=== PATIENT | male | born 1990 | race Caucasian/White ===

== ENCOUNTER 2017-03-05 02:16 | Emergency (ER) | payer OTHER ==
[2017-03-05] MEDS ORDERED: SODIUM CHLORIDE 0.9% 1,000 ML IV STA (02:31)
[2017-03-05] MEDS ORDERED: LORazepam 2 MG/ML SYRINGE IV STA (02:40)
[2017-03-05] MEDS ORDERED: ACETAMINOPHEN TAB 500 MG TAB PO STA (02:41)
[2017-03-05] MEDS ORDERED: ONDANSETRON 4 MG/2 ML VIAL IVP STA (02:41)
[2017-03-05] MEDS ORDERED: lamoTRIgine 100 MG TAB PO STA (02:42)
--- NOTE | 2017-03-05 02:47 | ED ---
General Adult HPI - General Chief complaint: Recheck/Abnormal Lab/Rx Stated complaint: Headache Time Seen by Provider: 03/05/17 02:20 Source: patient, RN notes reviewed Mode of arrival: EMS Limitations: no limitations - History of Present Illness Initial comments: Patient is a 26-year-old male presents to the emergency room for evaluation. Patient states he was walking home from work and felt a "vibrating" sensation starting from his upper legs up to his abdomen, bilateral arms and chest. Patient states he felt very "weird". Patient states he occasionally experiences this sensation before having a seizure. Patient states he has a history of seizures. Patient states he takes Lamictal 100 mg BID and Cymbalta. Patient states that he began developing a headache as well at the vibrations so he decided to call 911. Patient denies any loss of consciousness or actual seizure since experiencing the vibrating sensation. Patient states he is still feeling a vibrating sensation in his chest and bilateral arms. Patient states he started having a slight headache. Patient denies changes in vision. Patient denies dizziness or ringing in the ears. Patient's denies fevers or chills. Patient states he is nauseous but denies vomiting. Patient denies recent head trauma. Patient does state he has not taken his night time dose of Lamictal yet. Patient states he has history of an [place] when he was 19, due to low blood sugar. Patient states he hasn't checked his blood sugars today. Patient denies being on any medications. Patient states he smokes cigarettes and marijuana occasionally. Patient denies illicit drug use. Patient denies alcohol use. Patient denies cough, congestion, ear pain, throat pain, abdominal pain. - Related Data Home Medications Medication Instructions Recorded Confirmed Ranitidine HCl [Zantac] 150 mg PO BID PRN 10/20/14 11/04/16 lamoTRIgine [LaMICtal] 25 mg PO DAILY 11/04/16 11/04/16 Previous Rx's Medication Instructions Recorded DULoxetine HCL [Cymbalta] 60 mg PO DAILY #30 capsule. 10/02/16 Lacosamide [Vimpat] 100 mg PO BID #60 tablet 11/04/16 Allergies Allergy/AdvReac Type Severity Reaction Status Date / Time Penicillins Allergy Severe Anaphylaxis Verified 03/05/17 02:29 Review of Systems ROS Statement: Those systems with pertinent positive or pertinent negative responses have been documented in the HPI. ROS Other: All systems not noted in ROS Statement are negative. Past Medical History Past Medical History: GERD/Reflux, Myocardial Infarction ([place]), Seizure Disorder Additional Past Medical History / Comment(s): migraines, hypoglycemia, hiatal hernia, degenerative disk disease, torn miniscus left knee, muscle condition left eye. . Last Myocardial Infarction Date:: 2009 History of Any Multi-Drug Resistant Organisms: None Reported Past Surgical History: Appendectomy, Tonsillectomy Additional Past Surgical History / Comment(s): Jae Fundoplication, small intestional repair during appendectomy Past Anesthesia/Blood Transfusion Reactions: Family History of Problems w/ Anesthesia, Motion Sickness Additional Past Anesthesia/Blood Transfusion Reaction / Comment(s): MOTHER-PONV- diff waking up Past Psychological History: Anxiety, Bipolar, Depression Additional Psychological History / Comment(s): . Smoking Status: Current every day smoker Past Alcohol Use History: Rare Additional Past Alcohol Use History / Comment(s): He is a tobacco smoker of one third pack per day for 7 years. He states he uses marijuana and regular basis but not daily. 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 He denies any other street drug use. He denies any alcohol abuse. Past Drug Use History: None Reported Additional Drug Use History / Comment(s): . - Past Family History Brother(s) Additional Family Medical History / Comment(s): She has one brother and he has no contact with him. Patient does not have any sisters. Patient does not have any children. Father Family Medical History: Coronary Artery Disease (CAD), Myocardial Infarction ([place] ) Additional Family Medical History / Comment(s): Others 52 years of age and he has had no contact with him for the past 3 years. He states he does not know his medical history. Mother Family Medical History: No Reported History Additional Family Medical History / Comment(s): Mother is alive at age 51 has back and neck pain from work injury and is on disability.. General Exam - General Exam Comments Initial Comments: Sitting in exam room, no acute distress. Limitations: no limitations General appearance: alert, in no apparent distress Head exam: Present: atraumatic, normocephalic, normal inspection Eye exam: Present: normal appearance ENT exam: Present: normal exam Neck exam: Present: normal inspection Respiratory exam: Present: normal lung sounds bilaterally. Absent: respiratory distress Cardiovascular Exam: Present: regular rate, normal rhythm, normal heart sounds Extremities exam: Present: normal inspection Back exam: Present: normal inspection Neurological exam: Present: alert, oriented X3, CN II-XII intact, normal gait Expanded Speech: Present: fluid speech Cranial nerves: EOM's Intact: Normal, Facial Sensation: Normal Sensory exam: Upper Extremity Light Touch: Normal, Lower Extremity Light Touch: Normal Motor strength exam: RUE: 5, LUE: 5, RLE: 5, LLE: 5 Psychiatric exam: Present: normal affect, normal mood Skin exam: Present: warm, dry, intact, normal color. Absent: rash Course Vital Signs 03/05/17 03/05/17 03/05/17 02:24 03:18 04:04 Temperature 97.8 F Pulse Rate 101 H 80 81 Respiratory 16 18 16 Rate Blood Pressure 119/71 115/79 112/64 O2 Sat by Pulse 100 100 98 Oximetry EKG Findings - EKG Comments: EKG Findings:: Normal sinus rhythm with sinus arrhythmia, ventricular rate 79 bpm, RI interval 134 ms, QRS duration 92 ms, QT/QTc 364/417 ms Medical Decision Making - Medical Decision Making Patient is a 26-year-old male presents to the emergency room for evaluation of headache and vibrating sensation. Patient states he has a history of seizures and this feels similar prior to having a seizure. Patient had no seizure while he was here. Patient has no neuro deficits. Patient was given his night time dose of Lamictal and was given Ativan. Patient was given medications for headache. Labs showed no concerning findings. Advised patient to follow-up with his primary care provider or neurologist for further evaluation. Patient states he understands everything that was discussed with him. Return parameters discussed. Case discussed with Dr. Jones. - Lab Data Result diagrams: 03/05/17 02:45 03/05/17 02:45 Lab Results 03/05/17 03/05/17 03/05/17 Range/Units 02:45 02:45 02:45 WBC 7.2 (3.8-10.6) k/uL RBC 5.12 (4.30-5.90) m/uL Hgb 16.0 (13.0-17.5) gm/dL Hct 45.4 (39.0-53.0) % MCV 88.5 (80.0-100.0) fL MCH 31.3 (25.0-35.0) pg MCHC 35.4 (31.0-37.0) g/dL RDW 12.5 (11.5-15.5) % Plt Count 201 (150-450) k/uL Neutrophils % 64 % Lymphocytes % 26 % Monocytes % 6 % Eosinophils % 1 % Basophils % 1 % Neutrophils # 4.6 (1.3-7.7) k/uL Lymphocytes # 1.9 (1.0-4.8) k/uL Monocytes # 0.5 (0-1.0) k/uL Eosinophils # 0.1 (0-0.7) k/uL Basophils # 0.0 (0-0.2) k/uL Sodium 142 (137-145) mmol/L Potassium 3.3 L (3.5-5.1) mmol/L Chloride 106 (98-107) mmol/L Carbon Dioxide 26 (22-30) mmol/L Anion Gap 10 mmol/L BUN 10 (9-20) mg/dL Creatinine 0.70 (0.66-1.25) mg/dL Est GFR (MDRD) Af Amer >60 (>60 ml/min/1.73 sqM) Est GFR (MDRD) Non-Af >60 (>60 ml/min/1.73 sqM) Glucose 79 (74-99) mg/dL Calcium 10.0 (8.4-10.2) mg/dL Total Bilirubin 0.8 (0.2-1.3) mg/dL AST 30 (17-59) U/L ALT 31 (21-72) U/L Alkaline Phosphatase 49 (38-126) U/L Total Creatine Kinase 150 (55-170) U/L CK-MB (CK-2) 1.3 (0.0-2.4) ng/mL CK-MB (CK-2) Rel Index 0.9 Troponin I <0.012 (0.000-0.034) ng/mL Total Protein 7.0 (6.3-8.2) g/dL Albumin 4.7 (3.5-5.0) g/dL Salicylates <1.0 mg/dL Urine Opiates Screen (NotDetected) Ur Oxycodone Screen (NotDetected) Urine Methadone Screen (NotDetected) Ur Propoxyphene Screen (NotDetected) Acetaminophen <10.0 ug/mL Ur Barbiturates Screen (NotDetected) U Tricyclic Antidepress (NotDetected) Ur Phencyclidine Scrn (NotDetected) Ur Amphetamines Screen (NotDetected) U Methamphetamines Scrn (NotDetected) U Benzodiazepines Scrn (NotDetected) Urine Cocaine Screen (NotDetected) U Marijuana (THC) Screen (NotDetected) Serum Alcohol <10 mg/dL 03/05/17 Range/Units 03:15 WBC (3.8-10.6) k/uL RBC (4.30-5.90) m/uL Hgb (13.0-17.5) gm/dL Hct (39.0-53.0) % MCV (80.0-100.0) fL MCH (25.0-35.0) pg MCHC (31.0-37.0) g/dL RDW (11.5-15.5) % Plt Count (150-450) k/uL Neutrophils % % Lymphocytes % % Monocytes % % Eosinophils % % Basophils % % Neutrophils # (1.3-7.7) k/uL Lymphocytes # (1.0-4.8) k/uL Monocytes # (0-1.0) k/uL Eosinophils # (0-0.7) k/uL Basophils # (0-0.2) k/uL Sodium (137-145) mmol/L Potassium (3.5-5.1) mmol/L Chloride (98-107) mmol/L Carbon Dioxide (22-30) mmol/L Anion Gap mmol/L BUN (9-20) mg/dL Creatinine (0.66-1.25) mg/dL Est GFR (MDRD) Af Amer (>60 ml/min/1.73 sqM) Est GFR (MDRD) Non-Af (>60 ml/min/1.73 sqM) Glucose (74-99) mg/dL Calcium (8.4-10.2) mg/dL Total Bilirubin (0.2-1.3) mg/dL AST (17-59) U/L ALT (21-72) U/L Alkaline Phosphatase (38-126) U/L Total Creatine Kinase (55-170) U/L CK-MB (CK-2) (0.0-2.4) ng/mL CK-MB (CK-2) Rel Index Troponin I (0.000-0.034) ng/mL Total Protein (6.3-8.2) g/dL Albumin (3.5-5.0) g/dL Salicylates mg/dL Urine Opiates Screen Not Detected (NotDetected) Ur Oxycodone Screen Not Detected (NotDetected) Urine Methadone Screen Not Detected (NotDetected) Ur Propoxyphene Screen Not Detected (NotDetected) Acetaminophen ug/mL Ur Barbiturates Screen Not Detected (NotDetected) U Tricyclic Antidepress Not Detected (NotDetected) Ur Phencyclidine Scrn Not Detected (NotDetected) Ur Amphetamines Screen Not Detected (NotDetected) U Methamphetamines Scrn Not Detected (NotDetected) U Benzodiazepines Scrn Not Detected (NotDetected) Urine Cocaine Screen Not Detected (NotDetected) U Marijuana (THC) Screen Detected H (NotDetected) Serum Alcohol mg/dL Disposition Clinical Impression: Headache Disposition: HOME SELF-CARE Condition: Good Instructions: Acute Headache (ED) Additional Instructions: Continue taking at home medications as directed. Please follow-up with primary care provider or neurologist for reevaluation in 24-48 hours. If any new symptom arises or symptoms worsen, return to ER as soon as possible. Referrals: Gilbert Chery MD [Primary Care Provider] - 1-2 days Time of Disposition: 04:10
[2017-03-05 02:50] VITALS: TEMP 97.8
[2017-03-05 03:01] LABS: Basophils % (A) 1 %; CH 32.6; Eosinophils # (A) 0.1 k/uL (0-0.7); Eosinophils % (A) 1 %; HCT 45.4 % (39.0-53.0); HDW 2.71; Luc # (Auto) 0.17; Luc % (Auto) 2; Lymphocytes # (A) 1.9 k/uL (1.0-4.8); Lymphocytes % (A) 26 %; MCH 31.3 pg (25.0-35.0); MCHC 35.4 g/dL (31.0-37.0); MCV 88.5 fL (80.0-100.0); Mean Platelet Volume 6.6; Monocytes # (A) 0.5 k/uL (0-1.0); Monocytes % (A) 6 %; Neutrophils # (A) 4.6 k/uL (1.3-7.7); Neutrophils % (A) 64 %; RBC 5.12 m/uL (4.30-5.90); RDW 12.5 % (11.5-15.5); WBC 7.2 k/uL (3.8-10.6); WBC (Perox) 7.08
[2017-03-05 03:17] LABS: ALT 31 U/L (21-72); AST 30 U/L (17-59); Acetaminophen <10.0 ug/mL; Alcohol <10 mg/dL; Alkaline Phosphatase 49 U/L (38-126); Anion Gap 10 mmol/L; Blood Urea Nitrogen 10 mg/dL (9-20); Carbon Dioxide 26 mmol/L (22-30); Chloride 106 mmol/L (98-107); Glucose 79 mg/dL (74-99); Non-African American GFR(MDRD) >60 (>60 ml/min/1.73 sqM); Potassium 3.3 mmol/L (3.5-5.1); Salicylate <1.0 mg/dL; Sodium 142 mmol/L (137-145); Total Bilirubin 0.8 mg/dL (0.2-1.3)
[2017-03-05 03:40] LABS: Creatine Kinase 150 U/L (55-170)
[2017-03-05 03:53] LABS: Creatine Kinase MB 1.3 ng/mL (0.0-2.4); Troponin I <0.012 ng/mL (0.000-0.034)
[2017-03-05] MEDS ORDERED: IBUPROFEN 600 MG TAB PO STA (03:58)
[2017-03-05 04:06] VITALS: BP 112/64; PULSE 81; RESP 16
[2017-03-05 07:19] LABS: Glucose,Whole Blood 85 mg/dL (75-99)
== END 2017-03-05 04:26 | disposition home or self-care (01) ==
LOC: EC 02:16
DX: R51 Headache (principal); G40.909 Epilepsy, unspecified, not intractable, without status epilepticus; F17.200 Nicotine dependence, unspecified, uncomplicated; Z88.0 Allergy status to penicillin; Z79.899 Other long term (current) drug therapy
CPT/HCPCS: 99284; 96374; 96375; 96361; 36415; 93005; 80053; 80175; 82550; 82553; 84484; 85025; 80306; 83520 ×2; 80320; J2060; J2405

== ENCOUNTER 2017-07-02 20:36 | Emergency (ER) | payer BC, OTHER ==
[2017-07-02 20:48] VITALS: RESP 16
[2017-07-02] MEDS ORDERED: KETOROLAC 30 MG/ML 1 ML VIAL IM STA (21:10)
--- NOTE | 2017-07-02 21:16 | ED ---
Abdominal Pain HPI - General Chief Complaint: Abdominal Pain Stated Complaint: RLQ Pain Time Seen by Provider: 07/02/17 20:49 Source: patient Mode of arrival: ambulatory Limitations: no limitations - History of Present Illness Initial Comments: Patient is a 27-year-old male presents with chief complaint of right lower quadrant pain. Patient states he's been having this pain on and off for 6-8 months. He states today it was acutely worse. He was at work at about 9 AM when he states the pain intensified. He denies nausea, vomiting, appetite changes, diarrhea, or fever. Patient states that he has had his appendix removed. He cannot identify any aggravating or alleviating factors. Timing is constant. - Related Data Home Medications Medication Instructions Recorded Confirmed Ranitidine HCl [Zantac] 150 mg PO BID PRN 10/20/14 11/04/16 lamoTRIgine [LaMICtal] 25 mg PO DAILY 11/04/16 11/04/16 Previous Rx's Medication Instructions Recorded DULoxetine HCL [Cymbalta] 60 mg PO DAILY #30 capsule. 10/02/16 Lacosamide [Vimpat] 100 mg PO BID #60 tablet 11/04/16 Allergies Allergy/AdvReac Type Severity Reaction Status Date / Time Penicillins Allergy Severe Anaphylaxis Verified 07/02/17 20:44 Review of Systems ROS Statement: Those systems with pertinent positive or pertinent negative responses have been documented in the HPI. ROS Other: All systems not noted in ROS Statement are negative. Constitutional: Denies: fever Eyes: Denies: vision change ENT: Denies: ear pain, throat pain Respiratory: Denies: cough, dyspnea Cardiovascular: Denies: chest pain Endocrine: Denies: fatigue Gastrointestinal: Reports: abdominal pain. Denies: nausea, vomiting Genitourinary: Denies: dysuria Musculoskeletal: Denies: back pain Skin: Denies: rash Neurological: Denies: headache Psychiatric: Reports: as per HPI Hematological/Lymphatic: Reports: as per HPI Past Medical History Past Medical History: GERD/Reflux, Myocardial Infarction ([place]), Seizure Disorder Additional Past Medical History / Comment(s): migraines, hypoglycemia, hiatal hernia, degenerative disk disease, torn miniscus left knee, muscle condition left eye. . Last Myocardial Infarction Date:: 2009 History of Any Multi-Drug Resistant Organisms: None Reported Past Surgical History: Appendectomy, Tonsillectomy Additional Past Surgical History / Comment(s): Jae Fundoplication, small intestional repair during appendectomy Past Anesthesia/Blood Transfusion Reactions: Family History of Problems w/ Anesthesia, Motion Sickness Additional Past Anesthesia/Blood Transfusion Reaction / Comment(s): MOTHER-PONV- diff waking up Past Psychological History: Anxiety, Bipolar, Depression Smoking Status: Current every day smoker Past Alcohol Use History: Rare Past Drug Use History: None Reported - Past Family History Brother(s) Additional Family Medical History / Comment(s): She has one brother and he has no contact with him. Patient does not have any sisters. Patient does not have any children. Father Family Medical History: Coronary Artery Disease (CAD), Myocardial Infarction ([place] ) Additional Family Medical History / Comment(s): Others 52 years of age and he has had no contact with him for the past 3 years. He states he does not know his medical history. Mother Family Medical History: No Reported History Additional Family Medical History / Comment(s): Mother is alive at age 51 has back and neck pain from work injury and is on disability.. General Exam Limitations: no limitations General appearance: alert, in no apparent distress Head exam: Present: atraumatic, normocephalic Eye exam: Present: normal appearance ENT exam: Present: normal exam Neck exam: Present: normal inspection Respiratory exam: Present: normal lung sounds bilaterally. Absent: respiratory distress, wheezes Cardiovascular Exam: Present: regular rate, normal rhythm, normal heart sounds GI/Abdominal exam: Present: soft, tenderness (Patient has mild tenderness to palpation of the right rectus abdominis muscle border.). Absent: distended Rectal exam: Present: deferred exam: Present: normal inspection, circumcision. Absent: testicular tenderness, urethral discharge, scrotal swelling Extremities exam: Present: normal inspection Back exam: Present: normal inspection, full ROM Neurological exam: Present: alert, oriented X3 Psychiatric exam: Present: normal affect, normal mood Skin exam: Present: warm, dry, intact Course Vital Signs 07/02/17 20:44 Temperature 98.8 F Pulse Rate 89 Respiratory 16 Rate Blood Pressure 171/76 O2 Sat by Pulse 100 Oximetry Medical Decision Making - Medical Decision Making Patient presents with a chief complaint of right lower quadrant pain. This is been going on for 6-8 months. Patient has a history of an appendectomy, he further denies any fevers, chills, nausea, vomiting, stool changes, blood in his stool, testicular pain, or urethral discharge. Examination shows the patient has tenderness within the right inguinal canal along with the lower right rectus abdominis border. There is a slight defect felt in the right inguinal canal however there is no bowel or pulsatile mass present. 10:02 PM Abdominal series shows no acute process. There is nonspecific stool and gas pattern in all 4 quadrants of the abdomen. At this time, patient stable for discharge, follow up PCP, and surgery. He was given a work note to restrict lifting to 10 pounds until cleared by PCP or general surgery. Patient is instructed to return to the emergency department if symptoms worsen or change in any way. Disposition Clinical Impression: Hernia Disposition: HOME SELF-CARE Condition: Good Instructions: Inguinal Hernia (ED) Referrals: Gilbert Chery MD [Primary Care Provider] - 1-2 days Asuncion Metcalf MD [STAFF PHYSICIAN] - 1-2 days
--- NOTE | 2017-07-02 21:51 | XR ---
EXAMINATION TYPE: XR abdomen 2V DATE OF EXAM: 07/02/2017 9:18 PM CLINICAL HISTORY: right flank pain TECHNIQUE: Upright and supine KUB images of the abdomen pelvis. COMPARISON: None. FINDINGS: Scattered gas is seen in non-distended small bowel and large loops in all 4 quadrants. Gas and fecal material is seen in non-distended colon. No pneumatosis. No pneumoperitoneum. There is no v isceromegaly, pneumoperitoneum, or abnormal calcification appreciated. The lung bases are clear and t he osseous structures are intact. IMPRESSION: NO ACUTE PROCESS.
[2017-07-02 22:11] VITALS: BP 128/70; PULSE 68; TEMP 98.2
== END 2017-07-02 22:10 | disposition home or self-care (01) ==
LOC: EC 20:36
DX: K40.90 Unilateral inguinal hernia, without obstruction or gangrene, not specified as recurrent (principal); G40.909 Epilepsy, unspecified, not intractable, without status epilepticus; F17.200 Nicotine dependence, unspecified, uncomplicated; Z90.49 Acquired absence of other specified parts of digestive tract; Z79.899 Other long term (current) drug therapy; Z88.0 Allergy status to penicillin
CPT/HCPCS: 74020; 99284; 96372; J1885

== ENCOUNTER 2017-08-11 23:02 | Emergency (ER) | payer BC, OTHER ==
[2017-08-11 23:17] LABS: Glucose,Whole Blood 89 mg/dL (75-99)
[2017-08-11] MEDS ORDERED: ACETAMINOPHEN TAB 500 MG TAB PO STA (23:44)
[2017-08-11] MEDS ORDERED: SODIUM CHLORIDE 0.9% 1,000 ML IV STA (23:45)
[2017-08-11] MEDS ORDERED: HYDROmorphone 1 MG/ML 1 ML SYRINGE IVP STA (23:57)
[2017-08-12 00:01] LABS: Basophils # (A) 0.1 k/uL (0-0.2); Basophils % (A) 1 %; CH 30.9; CHCM 34.1; Eosinophils # (A) 0.2 k/uL (0-0.7); Eosinophils % (A) 3 %; HCT 45.1 % (39.0-53.0); HDW 2.71; HGB 15.4 gm/dL (13.0-17.5); Luc # (Auto) 0.18; Luc % (Auto) 3; Lymphocytes # (A) 2.7 k/uL (1.0-4.8); Lymphocytes % (A) 42 %; MCHC 34.2 g/dL (31.0-37.0); MCV 90.9 fL (80.0-100.0); Mean Platelet Volume 6.9; Monocytes # (A) 0.4 k/uL (0-1.0); Monocytes % (A) 6 %; Neutrophils # (A) 2.9 k/uL (1.3-7.7); Neutrophils % (A) 46 %; RBC 4.97 m/uL (4.30-5.90); RDW 12.4 % (11.5-15.5); WBC 6.4 k/uL (3.8-10.6); WBC (Perox) 6.47
[2017-08-12 00:12] LABS: Appearance,Urine Clear (Clear); Bilirubin,Urine Negative (Negative); Glucose,Urine (UA) Negative (Negative); Ketones,Urine Negative (Negative); Leukocyte Esterase,Urine Negative (Negative); Nitrite,Urine Negative (Negative); Protein,Urine Negative (Negative); Specific Gravity,Urine 1.002 (1.001-1.035); UA Billing (MACRO vs. MICRO) CHEM; Urobilinogen,Urine <2.0 mg/dL (<2.0)
[2017-08-12] MEDS ORDERED: ONDANSETRON 4 MG/2 ML VIAL IVP STA (00:15)
[2017-08-12 00:19] LABS: ALT 34 U/L (21-72); AST 31 U/L (17-59); Alkaline Phosphatase 66 U/L (38-126); Anion Gap 12 mmol/L; Blood Urea Nitrogen 8 mg/dL (9-20); Calcium 9.8 mg/dL (8.4-10.2); Carbon Dioxide 30 mmol/L (22-30); Chloride 98 mmol/L (98-107); Glucose 92 mg/dL (74-99); Non-African American GFR(MDRD) >60 (>60 ml/min/1.73 sqM); Potassium 3.8 mmol/L (3.5-5.1); Sodium 140 mmol/L (137-145); Total Bilirubin 0.4 mg/dL (0.2-1.3); Total Protein 6.9 g/dL (6.3-8.2)
--- NOTE | 2017-08-12 00:58 | XR ---
History: Reason: Pain Exam: XR C SPINE 5 images Comparison: CT cervical spine 09/26/2016 FINDINGS: No evidence of fracture or malalignment. The disc spaces appear preserved. No evidence of prevertebral swelling. IMPRESSION: No evidence of fracture or malalignment.
--- NOTE | 2017-08-12 01:38 | ED ---
Seizure HPI - General Chief Complaint: Seizure Stated Complaint: Seizure Time Seen by Provider: 08/11/17 23:28 Source: patient, family Mode of arrival: ambulatory Limitations: no limitations - History of Present Illness Initial Comments: 27-year-old male patient presents for evaluation after expressing a seizure at home. Mother states the seizure started at approximately 2230, states that she heard a fall and thrashing movements, went to see was going on in the patient was having a full body tonic-clonic seizure. She reports that his limbs were stiffened an outstretched. She denies any drooling or foaming at the mouth. States that he was not responding to her during the episode. She states that the episode lasted approximately 5 minutes. Patient denies any loss of bowel or bladder control. Mother states patient was confused and disoriented afterwards. She does have a history of epilepsy and does take Lamictal for this. Patient denies any recent illness, weight changes, or adjustment in his medication dosing. He states he has been taking the Lamictal as directed. States he sees Dr. Rubalcava as a neurologist. Patient states his last seizure was approximately month ago. States is not unusual to for him to have seizures occasionally. Patient did strike his head when the seizure started. He is currently reporting a headache after the seizure however he states that it is normal for him. He states that he has headaches after every seizure. He states that this headache feels very similar to those episodes. Patient is also reporting some neck pain, states it does hurt to turn his head side to side. Patient denies any recent rash, fever, chills, shortness breath, chest pain, abdominal pain, nausea, vomiting, diarrhea, constipation, back pain, numbness, tingling, dizziness, weakness, hematuria, dysuria, urinary urgency, urinary frequency, visual changes, or any other complaints. - Related Data Home Medications Medication Instructions Recorded Confirmed lamoTRIgine [LaMICtal] 100 mg PO BID 07/02/17 08/11/17 Hydrocodone/Acetaminophen [[place] 1 tab PO Q6HR PRN 08/11/17 08/11/17 7.5-325] Previous Rx's Medication Instructions Recorded DULoxetine HCL [Cymbalta] 60 mg PO DAILY #30 10/02/16 Ibuprofen [Motrin] 800 mg PO Q6HR #30 tab 07/02/17 Allergies Allergy/AdvReac Type Severity Reaction Status Date / Time Penicillins Allergy Severe Anaphylaxis Verified 08/11/17 23:05 Review of Systems ROS Statement: Those systems with pertinent positive or pertinent negative responses have been documented in the HPI. ROS Other: All systems not noted in ROS Statement are negative. Past Medical History Past Medical History: GERD/Reflux, Myocardial Infarction ([place]), Seizure Disorder Additional Past Medical History / Comment(s): migraines, hypoglycemia, hiatal hernia, degenerative disk disease, torn miniscus left knee, muscle condition left eye. . Last Myocardial Infarction Date:: 2009 History of Any Multi-Drug Resistant Organisms: None Reported Past Surgical History: Appendectomy, Tonsillectomy Additional Past Surgical History / Comment(s): Jae Fundoplication, small intestional repair during appendectomy Past Anesthesia/Blood Transfusion Reactions: Family History of Problems w/ Anesthesia, Motion Sickness Additional Past Anesthesia/Blood Transfusion Reaction / Comment(s): MOTHER-PONV- diff waking up Past Psychological History: Anxiety, Bipolar, Depression Smoking Status: Current every day smoker Past Alcohol Use History: Rare Past Drug Use History: None Reported - Past Family History Brother(s) Additional Family Medical History / Comment(s): She has one brother and he has no contact with him. Patient does not have any sisters. Patient does not have any children. Father Family Medical History: Coronary Artery Disease (CAD), Myocardial Infarction ([place] ) Additional Family Medical History / Comment(s): Others 52 years of age and he has had no contact with him for the past 3 years. He states he does not know his medical history. Mother Family Medical History: No Reported History Additional Family Medical History / Comment(s): Mother is alive at age 51 has back and neck pain from work injury and is on disability.. General Exam Limitations: no limitations General appearance: alert, in no apparent distress, other (This is a well- developed, well-nourished adult male patient in no acute distress. He is currently alert and oriented. Vital signs upon presentation were temperature 97.8F, pulse 75, respirations 18, blood pressure 134/86, pulse ox 100% on room air.) Head exam: Present: other (Patient does have some soft tissue swelling and minor ecchymosis to the left forehead.) Eye exam: Present: normal appearance, PERRL, EOMI. Absent: scleral icterus, conjunctival injection, nystagmus, periorbital swelling ENT exam: Present: normal exam, normal oropharynx, mucous membranes moist, TM's normal bilaterally Neck exam: Present: normal inspection, tenderness (Some tenderness over the upper cervical vertebrae to firm midline palpation.), full ROM. Absent: meningismus, lymphadenopathy Respiratory exam: Present: normal lung sounds bilaterally. Absent: respiratory distress, wheezes, rales, rhonchi, stridor Cardiovascular Exam: Present: regular rate, normal rhythm, normal heart sounds. Absent: systolic murmur, diastolic murmur, rubs, gallop, clicks GI/Abdominal exam: Present: soft, normal bowel sounds. Absent: distended, tenderness, guarding, rebound, rigid Extremities exam: Present: normal inspection, full ROM, normal capillary refill. Absent: tenderness, pedal edema, joint swelling, calf tenderness Back exam: Present: normal inspection Neurological exam: Present: alert, oriented X3, CN II-XII intact, other ( Strength in all 4 extremities is 5/5. Patient is alert and acutely response. Speech is fluid.) Psychiatric exam: Present: normal affect, normal mood Skin exam: Present: warm, dry, intact, normal color. Absent: rash Course Vital Signs 08/11/17 23:02 Temperature 97.8 F Pulse Rate 75 Respiratory 18 Rate Blood Pressure 134/86 O2 Sat by Pulse 100 Oximetry Medical Decision Making - Medical Decision Making 27 year-old male patient presented for evaluation after having a seizure and fall at home. Physical exam did show a mild amount of soft tissue swelling to the left forehead. Patient is neurologically intact. Labs are unremarkable. Urinalysis negative. Urine drug screen positive for opiates only. X-ray of the cervical spine negative for any acute fracture or dislocation. Patient has been stable while here in the department. No further seizure activity. Patient instructed to follow-up with his neurologist in 1-2 days for recheck. They're instructed to return immediately for any new, worsening, or concerning symptoms. They verbalize understanding and agree with this plan. - Lab Data Result diagrams: 08/11/17 23:15 08/11/17 23:15 Lab Results 08/11/17 08/11/17 08/11/17 Range/Units 23:15 23:15 23:15 WBC 6.4 (3.8-10.6) k/uL RBC 4.97 (4.30-5.90) m/uL Hgb 15.4 (13.0-17.5) gm/dL Hct 45.1 (39.0-53.0) % MCV 90.9 (80.0-100.0) fL MCH 31.0 (25.0-35.0) pg MCHC 34.2 (31.0-37.0) g/dL RDW 12.4 (11.5-15.5) % Plt Count 211 (150-450) k/uL Neutrophils % 46 % Lymphocytes % 42 % Monocytes % 6 % Eosinophils % 3 % Basophils % 1 % Neutrophils # 2.9 (1.3-7.7) k/uL Lymphocytes # 2.7 (1.0-4.8) k/uL Monocytes # 0.4 (0-1.0) k/uL Eosinophils # 0.2 (0-0.7) k/uL Basophils # 0.1 (0-0.2) k/uL Sodium 140 (137-145) mmol/L Potassium 3.8 (3.5-5.1) mmol/L Chloride 98 (98-107) mmol/L Carbon Dioxide 30 (22-30) mmol/L Anion Gap 12 mmol/L BUN 8 L (9-20) mg/dL Creatinine 0.70 (0.66-1.25) mg/dL Est GFR (MDRD) Af Amer >60 (>60 ml/min/1.73 sqM) Est GFR (MDRD) Non-Af >60 (>60 ml/min/1.73 sqM) Glucose 92 (74-99) mg/dL POC Glucose (mg/dL) 89 (75-99) mg/dL POC Glu Barrel Raiser Helper ID Jennifer Conklin Calcium 9.8 (8.4-10.2) mg/dL Total Bilirubin 0.4 (0.2-1.3) mg/dL AST 31 (17-59) U/L ALT 34 (21-72) U/L Alkaline Phosphatase 66 (38-126) U/L Total Protein 6.9 (6.3-8.2) g/dL Albumin 4.5 (3.5-5.0) g/dL Urine Color Urine Appearance (Clear) Urine pH (5.0-8.0) Ur Specific [place] (1.001-1.035) Urine Protein (Negative) Urine Glucose (UA) (Negative) Urine Ketones (Negative) Urine Blood (Negative) Urine Nitrite (Negative) Urine Bilirubin (Negative) Urine Urobilinogen (<2.0) mg/dL Ur Leukocyte Esterase (Negative) Urine Opiates Screen (NotDetected) Ur Oxycodone Screen (NotDetected) Urine Methadone Screen (NotDetected) Ur Propoxyphene Screen (NotDetected) Ur Barbiturates Screen (NotDetected) U Tricyclic Antidepress (NotDetected) Ur Phencyclidine Scrn (NotDetected) Ur Amphetamines Screen (NotDetected) U Methamphetamines Scrn (NotDetected) U Benzodiazepines Scrn (NotDetected) Urine Cocaine Screen (NotDetected) U Marijuana (THC) Screen (NotDetected) 08/11/17 Range/Units 23:57 WBC (3.8-10.6) k/uL RBC (4.30-5.90) m/uL Hgb (13.0-17.5) gm/dL Hct (39.0-53.0) % MCV (80.0-100.0) fL MCH (25.0-35.0) pg MCHC (31.0-37.0) g/dL RDW (11.5-15.5) % Plt Count (150-450) k/uL Neutrophils % % Lymphocytes % % Monocytes % % Eosinophils % % Basophils % % Neutrophils # (1.3-7.7) k/uL Lymphocytes # (1.0-4.8) k/uL Monocytes # (0-1.0) k/uL Eosinophils # (0-0.7) k/uL Basophils # (0-0.2) k/uL Sodium (137-145) mmol/L Potassium (3.5-5.1) mmol/L Chloride (98-107) mmol/L Carbon Dioxide (22-30) mmol/L Anion Gap mmol/L BUN (9-20) mg/dL Creatinine (0.66-1.25) mg/dL Est GFR (MDRD) Af Amer (>60 ml/min/1.73 sqM) Est GFR (MDRD) Non-Af (>60 ml/min/1.73 sqM) Glucose (74-99) mg/dL POC Glucose (mg/dL) (75-99) mg/dL POC Glu Barrel Raiser Helper ID Calcium (8.4-10.2) mg/dL Total Bilirubin (0.2-1.3) mg/dL AST (17-59) U/L ALT (21-72) U/L Alkaline Phosphatase (38-126) U/L Total Protein (6.3-8.2) g/dL Albumin (3.5-5.0) g/dL Urine Color Colorless Urine Appearance Clear (Clear) Urine pH 7.0 (5.0-8.0) Ur Specific [place] 1.002 (1.001-1.035) Urine Protein Negative (Negative) Urine Glucose (UA) Negative (Negative) Urine Ketones Negative (Negative) Urine Blood Negative (Negative) Urine Nitrite Negative (Negative) Urine Bilirubin Negative (Negative) Urine Urobilinogen <2.0 (<2.0) mg/dL Ur Leukocyte Esterase Negative (Negative) Urine Opiates Screen Detected H (NotDetected) Ur Oxycodone Screen Not Detected (NotDetected) Urine Methadone Screen Not Detected (NotDetected) Ur Propoxyphene Screen Not Detected (NotDetected) Ur Barbiturates Screen Not Detected (NotDetected) U Tricyclic Antidepress Not Detected (NotDetected) Ur Phencyclidine Scrn Not Detected (NotDetected) Ur Amphetamines Screen Not Detected (NotDetected) U Methamphetamines Scrn Not Detected (NotDetected) U Benzodiazepines Scrn Not Detected (NotDetected) Urine Cocaine Screen Not Detected (NotDetected) U Marijuana (THC) Screen Not Detected (NotDetected) - Radiology Data Radiology results: report reviewed, image reviewed X-ray of the cervical spine shows no evidence of fracture or malalignment. The disc spaces appear preserved. No evidence of prevertebral swelling. Impression by Dr. Field shows no evidence of fracture or malalignment. Disposition Clinical Impression: Seizure Disposition: HOME SELF-CARE Condition: Good Instructions: Recurrent Seizures in Adults (ED) Additional Instructions: Follow-up with her neurologist for recheck in 1-2 days. Monitor for signs or symptoms of worsening head injury including but not limited to dizziness, weakness, worsening headache, nausea, vomiting, or confusion. Follow-up with your primary care physician for recheck in 1-2 days. Return here immediately for any new, worsening, or concerning symptoms. Referrals: Gilbert Chery MD [Primary Care Provider] - 1-2 days Time of Disposition: 01:38
[2017-08-12 01:56] VITALS: BP 138/80; PULSE 70; RESP 16; TEMP 97.9
== END 2017-08-12 01:57 | disposition home or self-care (01) ==
LOC: EC 23:02
DX: G40.909 Epilepsy, unspecified, not intractable, without status epilepticus (principal); F31.9 Bipolar disorder, unspecified; F17.200 Nicotine dependence, unspecified, uncomplicated; Z88.0 Allergy status to penicillin; Z79.899 Other long term (current) drug therapy
CPT/HCPCS: 99284 ×2; 96374 ×2; 96375 ×2; 96361 ×2; 36415; 93005; 80053; 85025; 81003; 80306; 72050; J2405; J1170

== ENCOUNTER 2017-11-11 22:36 | Emergency (ER) | payer BC ==
[2017-11-11 22:49] VITALS: RESP 18
[2017-11-11] MEDS ORDERED: HYDROmorphone 1 MG/ML 1 ML SYRINGE IVP STA (23:45)
[2017-11-11] MEDS ORDERED: SODIUM CHLORIDE 0.9% 1,000 ML IV STA (23:45)
--- NOTE | 2017-11-12 00:11 | ED ---
General Adult HPI - General Chief complaint: Head Injury Stated complaint: seizure Time Seen by Provider: 11/11/17 23:18 Source: patient, RN notes reviewed Mode of arrival: ambulatory Limitations: no limitations - History of Present Illness Initial comments: This is a 27-year-old male who presents to the emergency department with chief complaint of seizure. Patient states that he has a history of epilepsy since being diagnosed in April 2016. He sees Dr. Glass. Patient states that since the last time he was seen in the emergency department for a seizure his Lamictal was increased 150 mg. Patient states that this evening at approximately 1010 he was in his bedroom. He got up to bring his plate to the sink and awoke 5-10 minutes later. Patient states that the seizure was not witnessed and believes he hit his forehead on the wall as he has some abrasions there. He states that after having his seizure he felt more delirious than normal. He states that normally after having seizures he does get a headache, however this time his headache is worse than normal. He states that the headache is constant and pounding in his forehead. He currently rates the headache as 8/10. Patient states that he took Tylenol for the headache with minimal relief prior to arrival. Mother is concerned because patient seems to be twitching while he is here and she notes that his speech is slower than normal. Denies fever, chills, chest pain, shortness of breath, abdominal pain, nausea or vomiting, constipation or diarrhea, dysuria or hematuria, numbness or tingling, or vision changes. - Related Data Home Medications Medication Instructions Recorded Confirmed Acetaminophen Tab [Tylenol Tab] 1,000 mg PO Q6HR PRN 11/11/17 11/11/17 DULoxetine HCL [Cymbalta] 60 mg PO BID 11/11/17 11/11/17 lamoTRIgine [LaMICtal] 150 mg PO BID 11/11/17 11/11/17 Allergies Allergy/AdvReac Type Severity Reaction Status Date / Time Penicillins Allergy Severe Anaphylaxis Verified 11/11/17 23:17 Review of Systems ROS Statement: Those systems with pertinent positive or pertinent negative responses have been documented in the HPI. ROS Other: All systems not noted in ROS Statement are negative. Past Medical History Past Medical History: GERD/Reflux, Myocardial Infarction ([place]), Seizure Disorder Additional Past Medical History / Comment(s): migraines, hypoglycemia, hiatal hernia, degenerative disk disease, torn miniscus left knee, muscle condition left eye. . Last Myocardial Infarction Date:: 2009 History of Any Multi-Drug Resistant Organisms: None Reported Past Surgical History: Appendectomy, Tonsillectomy Additional Past Surgical History / Comment(s): Jae Fundoplication, small intestional repair during appendectomy Past Anesthesia/Blood Transfusion Reactions: Family History of Problems w/ Anesthesia, Motion Sickness Additional Past Anesthesia/Blood Transfusion Reaction / Comment(s): MOTHER-PONV- diff waking up Past Psychological History: Anxiety, Bipolar, Depression Smoking Status: Current every day smoker Past Alcohol Use History: Rare Past Drug Use History: None Reported - Past Family History Brother(s) Additional Family Medical History / Comment(s): She has one brother and he has no contact with him. Patient does not have any sisters. Patient does not have any children. Father Family Medical History: Coronary Artery Disease (CAD), Myocardial Infarction ([place] ) Additional Family Medical History / Comment(s): Others 52 years of age and he has had no contact with him for the past 3 years. He states he does not know his medical history. Mother Family Medical History: No Reported History Additional Family Medical History / Comment(s): Mother is alive at age 51 has back and neck pain from work injury and is on disability.. General Exam - General Exam Comments Initial Comments: General: Awake and alert, well-developed; in no apparent distress. Mother is at bedside. HEENT: Head atraumatic, normocephalic. Pupils are equal, round and reactive to light. Extraocular movements intact. Oropharynx moist without erythema or exudate. Neck: Supple. Normal ROM. Cardiovascular: Regular rate and rhythm. No murmurs, rubs or gallops. Chest symmetrical. Respiratory: Lungs clear to auscultation bilaterally. No wheezes, rales or rhonchi. Normal respiratory effort with no use of accessory muscles. Abdomen: Soft, non-tender, non-distended. No rigidity, rebound or guarding. Normal bowel sounds in all 4 quadrants. Musculoskeletal: Normal ROM, no tenderness, strength 5/5 bilateral upper and lower extremities. Skin: [place], warm and dry without rashes or lesions. Neurological: Alert and oriented x3. CN II-XII grossly intact. Speech is fluent and answers are appropriate. No focal neuro deficits. Psychiatric: Normal mood and affect. No overt signs of depression or anxiety noted. Limitations: no limitations Course Vital Signs 11/11/17 11/12/17 22:43 00:22 Temperature 99.0 F Pulse Rate 108 H 96 Respiratory 18 18 Rate Blood Pressure 143/85 121/62 O2 Sat by Pulse 99 98 Oximetry EKG Findings - EKG Comments: EKG Findings:: EKG at 23:50:01. Normal sinus rhythm. Ventricular rate 89 bpm, PA interval 134, QRS duration 90, QT/QTC 342/416. Medical Decision Making - Medical Decision Making This is a 27-year-old male presents to the emergency department with chief complaint of seizure. Patient has a history of epilepsy and takes 150 mg of Lamictal daily. This evening patient had a non-witnessed seizure at home in his bedroom. Patient complains of a frontal headache that is worse than his normal headaches. Computed tomography scan of the brain revealed no acute abnormalities. CBC and CMP were within normal limits. UA was normal and negative for all drugs screened. Patient was stable while in the emergency department; no seizures. Patient will be discharged home with recommendation to follow-up with Dr. Rubalcava within 1-2 days. He is in agreement with plan and voices understanding. All questions were answered. - Lab Data Result diagrams: 11/12/17 00:15 11/12/17 00:15 Lab Results 11/12/17 11/12/17 11/12/17 Range/Units 00:15 00:15 00:15 WBC 7.3 (3.8-10.6) k/uL RBC 4.91 (4.30-5.90) m/uL Hgb 15.0 (13.0-17.5) gm/dL Hct 42.9 (39.0-53.0) % MCV 87.3 (80.0-100.0) fL MCH 30.6 (25.0-35.0) pg MCHC 35.0 (31.0-37.0) g/dL RDW 13.4 (11.5-15.5) % Plt Count 217 (150-450) k/uL Neutrophils % 58 % Lymphocytes % 31 % Monocytes % 6 % Eosinophils % 2 % Basophils % 1 % Neutrophils # 4.2 (1.3-7.7) k/uL Lymphocytes # 2.2 (1.0-4.8) k/uL Monocytes # 0.5 (0-1.0) k/uL Eosinophils # 0.1 (0-0.7) k/uL Basophils # 0.1 (0-0.2) k/uL Sodium 142 (137-145) mmol/L Potassium 3.9 (3.5-5.1) mmol/L Chloride 106 (98-107) mmol/L Carbon Dioxide 26 (22-30) mmol/L Anion Gap 10 mmol/L BUN 15 (9-20) mg/dL Creatinine 0.80 (0.66-1.25) mg/dL Est GFR (MDRD) Af Amer >60 (>60 ml/min/1.73 sqM) Est GFR (MDRD) Non-Af >60 (>60 ml/min/1.73 sqM) Glucose 89 (74-99) mg/dL Calcium 9.7 (8.4-10.2) mg/dL Total Bilirubin 0.3 (0.2-1.3) mg/dL AST 21 (17-59) U/L ALT 34 (21-72) U/L Alkaline Phosphatase 50 (38-126) U/L Total Protein 6.8 (6.3-8.2) g/dL Albumin 4.4 (3.5-5.0) g/dL Urine Color Yellow Urine Appearance Clear (Clear) Urine pH 6.0 (5.0-8.0) Ur Specific [place] 1.042 H (1.001-1.035) Urine Protein 1+ H (Negative) Urine Glucose (UA) Negative (Negative) Urine Ketones Trace H (Negative) Urine Blood Negative (Negative) Urine Nitrite Negative (Negative) Urine Bilirubin Negative (Negative) Urine Urobilinogen 2.0 (<2.0) mg/dL Ur Leukocyte Esterase Negative (Negative) Urine RBC <1 (0-5) /hpf Urine WBC 2 (0-5) /hpf Ur Squamous Epith Cells <1 (0-4) /hpf Calcium Oxalate Crystal Rare H (None) /hpf Urine Mucus Many H (None) /hpf Urine Opiates Screen Not Detected (NotDetected) Ur Oxycodone Screen Not Detected (NotDetected) Urine Methadone Screen Not Detected (NotDetected) Ur Propoxyphene Screen Not Detected (NotDetected) Ur Barbiturates Screen Not Detected (NotDetected) U Tricyclic Antidepress Not Detected (NotDetected) Ur Phencyclidine Scrn Not Detected (NotDetected) Ur Amphetamines Screen Not Detected (NotDetected) U Methamphetamines Scrn Not Detected (NotDetected) U Benzodiazepines Scrn Not Detected (NotDetected) Urine Cocaine Screen Not Detected (NotDetected) U Marijuana (THC) Screen Not Detected (NotDetected) - Radiology Data Radiology results: report reviewed CT brain without contrast findings: Ventral sulci appear normal. There is no mass effect or midline shift. There is no sign of intracranial hemorrhage. Calvarium is intact. Conclusion: Negative computed tomography scan of the brain. No change. Disposition Clinical Impression: Seizure, Headache Disposition: HOME SELF-CARE Condition: Good Instructions: Recurrent Seizures in Adults (ED) Additional Instructions: Please follow-up with Dr. Rubalcava within 1-2 days. Please follow up with primary care provider within 1-2 days. Return to emergency department if symptoms should worsen or any concerns arise. Bhargav was seen in the emergency department following a seizure this evening. While in the emergency department he received Dilaudid and IV fluids. CT of the brain was normal with no evidence of intracranial hemorrhage. CBC and CMP were within normal limits. UA and drug screen were negative. Patient was stable while in the emergency department. Referrals: Huber Zhu MD [Primary Care Provider] - 1-2 days Time of Disposition: 01:35
--- NOTE | 2017-11-12 00:35 | CT ---
EXAMINATION TYPE: CT brain wo con DATE OF EXAM: 11/12/2017 COMPARISON: 09/26/2016 HISTORY: Prior on synapse 2016, seizure today CT DLP: 973.80 mGycm. Automated Exposure Control for Dose Reduction was Utilized. TECHNIQUE: CT scan of the head is performed without contrast. FINDINGS: Ventricles and sulci appear normal. There is no mass effect nor midline shift. There is n o sign of intracranial hemorrhage. The calvarium is intact. CONCLUSION: Negative CT scan of the brain. No change.
[2017-11-12 00:37] LABS: Basophils # (A) 0.1 k/uL (0-0.2); Basophils % (A) 1 %; Eosinophils # (A) 0.1 k/uL (0-0.7); Eosinophils % (A) 2 %; HCT 42.9 % (39.0-53.0); Lymphocytes # (A) 2.2 k/uL (1.0-4.8); Lymphocytes % (A) 31 %; MCH 30.6 pg (25.0-35.0); MCV 87.3 fL (80.0-100.0); Mean Platelet Volume 7.2; Monocytes # (A) 0.5 k/uL (0-1.0); Monocytes % (A) 6 %; Neutrophils # (A) 4.2 k/uL (1.3-7.7); Neutrophils % (A) 58 %; Platelet Count 217 k/uL (150-450); RBC 4.91 m/uL (4.30-5.90); RDW 13.4 % (11.5-15.5); WBC 7.3 k/uL (3.8-10.6)
[2017-11-12 00:55] LABS: ALT 34 U/L (21-72); AST 21 U/L (17-59); Albumin 4.4 g/dL (3.5-5.0); Alkaline Phosphatase 50 U/L (38-126); Anion Gap 10 mmol/L; Blood Urea Nitrogen 15 mg/dL (9-20); Calcium 9.7 mg/dL (8.4-10.2); Carbon Dioxide 26 mmol/L (22-30); Chloride 106 mmol/L (98-107); Glucose 89 mg/dL (74-99); Potassium 3.9 mmol/L (3.5-5.1); Sodium 142 mmol/L (137-145); Total Bilirubin 0.3 mg/dL (0.2-1.3); Total Protein 6.8 g/dL (6.3-8.2)
[2017-11-12 00:56] LABS: Appearance,Urine Clear (Clear); Bilirubin,Urine Negative (Negative); Blood,Urine Negative (Negative); Calcium Oxalate Crystals,Urine Rare /hpf; Color,Urine Yellow; Glucose,Urine (UA) Negative (Negative); Ketones,Urine Trace (Negative); Leukocyte Esterase,Urine Negative (Negative); Mucus,Urine Many /hpf; Nitrite,Urine Negative (Negative); Protein,Urine 1+ (Negative); RBC,Urine <1 /hpf (0-5); Specific Gravity,Urine 1.042 (1.001-1.035); Squamous Epithelial Cell,Urine <1 /hpf (0-4); WBC,Urine 2 /hpf (0-5)
[2017-11-12 01:07] LABS: Amphetamine Screen,Urine Not Detected (NotDetected); Barbiturate Screen,Urine Not Detected (NotDetected); Benzodiazepines Screen,Urine Not Detected (NotDetected); Cocaine Screen,Urine Not Detected (NotDetected); Methadone Screen, Urine Not Detected (NotDetected); Opiate Screen,Urine Not Detected (NotDetected); Oxycodone Screen, Urine Not Detected (NotDetected); Phencyclidine Screen,Urine Not Detected (NotDetected); Tricyclic Antidepressant,Urine Not Detected (NotDetected); Urn Cannabinoid Scrn Not Detected (NotDetected)
[2017-11-12] MEDS ORDERED: HYDROmorphone 1 MG/ML 1 ML SYRINGE IM STA (01:31)
[2017-11-12 01:49] VITALS: BP 116/64; PULSE 89; TEMP 97.8
== END 2017-11-12 01:48 | disposition home or self-care (01) ==
LOC: EC 22:36
DX: G40.909 Epilepsy, unspecified, not intractable, without status epilepticus (principal); R51 Headache; F31.9 Bipolar disorder, unspecified; F41.9 Anxiety disorder, unspecified; F17.200 Nicotine dependence, unspecified, uncomplicated; Z88.0 Allergy status to penicillin; Z79.899 Other long term (current) drug therapy; W22.01XA Walked into wall, initial encounter
CPT/HCPCS: 36415; 93005; 80053; 85025; 81001; 80306; 70450; 99284; 96374; 96372; 96361; J1170

== ENCOUNTER 2018-11-20 20:36 | Emergency (ER) | payer BC, OTHER ==
[2018-11-20 21:23] LABS: Basophils # (A) 0.1 k/uL (0-0.2); Basophils % (A) 1 %; Eosinophils # (A) 0.2 k/uL (0-0.7); Eosinophils % (A) 2 %; HCT 50.1 % (39.0-53.0); HGB 17.1 gm/dL (13.0-17.5); Lymphocytes # (A) 2.4 k/uL (1.0-4.8); Lymphocytes % (A) 35 %; MCH 28.7 pg (25.0-35.0); MCHC 34.2 g/dL (31.0-37.0); Mean Platelet Volume 6.7; Monocytes # (A) 0.4 k/uL (0-1.0); Monocytes % (A) 5 %; Neutrophils # (A) 3.8 k/uL (1.3-7.7); Neutrophils % (A) 55 %; Platelet Count 280 k/uL (150-450); RBC 5.96 m/uL (4.30-5.90); RDW 13.8 % (11.5-15.5)
[2018-11-20 21:33] LABS: ALT 29 U/L (21-72); AST 22 U/L (17-59); Albumin 5.1 g/dL (3.5-5.0); Alkaline Phosphatase 52 U/L (38-126); Amylase 116 U/L (30-110); Anion Gap 10 mmol/L; Blood Urea Nitrogen 13 mg/dL (9-20); Calcium 10.2 mg/dL (8.4-10.2); Carbon Dioxide 30 mmol/L (22-30); Chloride 101 mmol/L (98-107); Glucose 82 mg/dL (74-99); Lipase 372 U/L (23-300); Potassium 4.1 mmol/L (3.5-5.1); Sodium 141 mmol/L (137-145); Total Bilirubin 0.6 mg/dL (0.2-1.3); Total Protein 8.1 g/dL (6.3-8.2)
[2018-11-20 21:44] LABS: Appearance,Urine Clear (Clear); Bilirubin,Urine Negative (Negative); Blood,Urine Negative (Negative); Color,Urine Yellow; Glucose,Urine (UA) Negative (Negative); Ketones,Urine Negative (Negative); Leukocyte Esterase,Urine Negative (Negative); Nitrite,Urine Negative (Negative); Protein,Urine Trace (Negative); Specific Gravity,Urine 1.025 (1.001-1.035); Urobilinogen,Urine <2.0 mg/dL (<2.0)
--- NOTE | 2018-11-20 23:06 | ED ---
General Adult HPI - General Chief complaint: Abdominal Pain Stated complaint: Nausea vomiting Source: patient Mode of arrival: ambulatory Limitations: no limitations - Related Data Home Medications Medication Instructions Recorded Confirmed DULoxetine HCL [Cymbalta] 60 mg PO BID 11/11/17 11/20/18 Ibuprofen [Motrin Ib] 200 mg PO Q6H PRN 11/20/18 11/20/18 Previous Rx's Medication Instructions Recorded Ondansetron Odt [Zofran Odt] 4 mg PO Q8HR PRN #12 tab 11/21/18 Allergies Allergy/AdvReac Type Severity Reaction Status Date / Time Penicillins Allergy Severe Anaphylaxis Verified 11/20/18 22:16 Review of Systems ROS Statement: Those systems with pertinent positive or pertinent negative responses have been documented in the HPI. ROS Other: All systems not noted in ROS Statement are negative. Past Medical History Past Medical History: GERD/Reflux, Myocardial Infarction ([place]), Seizure Disorder Additional Past Medical History / Comment(s): migraines, hypoglycemia, hiatal hernia, degenerative disk disease, torn miniscus left knee, muscle condition left eye. . Last Myocardial Infarction Date:: 2009 History of Any Multi-Drug Resistant Organisms: None Reported Past Surgical History: Appendectomy, Tonsillectomy Additional Past Surgical History / Comment(s): Jae Fundoplication, small intestional repair during appendectomy Past Anesthesia/Blood Transfusion Reactions: Family History of Problems w/ Anesthesia, Motion Sickness Additional Past Anesthesia/Blood Transfusion Reaction / Comment(s): MOTHER-PONV- diff waking up Past Psychological History: Anxiety, Bipolar, Depression Smoking Status: Current every day smoker Past Alcohol Use History: Rare Past Drug Use History: Marijuana - Past Family History Brother(s) Additional Family Medical History / Comment(s): She has one brother and he has no contact with him. Patient does not have any sisters. Patient does not have any children. Father Family Medical History: Coronary Artery Disease (CAD), Myocardial Infarction ([place] ) Additional Family Medical History / Comment(s): Others 52 years of age and he has had no contact with him for the past 3 years. He states he does not know his medical history. Mother Family Medical History: No Reported History Additional Family Medical History / Comment(s): Mother is alive at age 51 has back and neck pain from work injury and is on disability.. General Exam Limitations: no limitations Course Vital Signs 11/20/18 11/21/18 21:04 00:58 Temperature 100.2 F H 98.2 F Pulse Rate 107 H 79 Respiratory 20 18 Rate Blood Pressure 133/90 126/84 O2 Sat by Pulse 99 99 Oximetry Medical Decision Making - Medical Decision Making Dictation was produced using [employer] dictation software. please excuse any grammatical, word or spelling errors. Chief Complaint: 28-year-old male past medical history of Jae fundoplication for hiatal hernia presents with abdominal pain and unintentional weight loss times History of Present Illness: 28-year-old male Presents with chief complaint of epigastric abdominal pain with unintentional weight loss for one month. Patient states his symptoms have started [place] time. Reports that since [place] he's been having reduced appetite, nausea vomiting. He states that his emesis is green. Denies any diarrhea. States that he has pain in his epigastrium that radiates to his back when he lies flat. Patient has also been having night sweats and other constitutional symptoms. Patient is brought in by his mother today because he looked pale and is losing weight at to fast rate. He states he lost approximately 20 pounds in one month. The ROS documented in this emergency department record has been reviewed and confirmed by me. Those systems with pertinent positive or negative responses have been documented in the HPI. All other systems are other negative and/or noncontributory. PHYSICAL EXAM: General Impression: Alert and oriented x3, not in acute distress HEENT: Normocephalic atraumatic, extra-ocular movements intact, pupils equal and reactive to light bilaterally, mucous membranes moist. Cardiovascular: Heart regular rate and rhythm, S1&S2 audible, no murmurs, rubs or gallops Chest: Lungs clear to auscultation bilaterally, no rhonchi, no wheeze, no rales Abdomen: Bowel sounds present, abdomen soft, non-tender, non-distended, no organomegaly Musculoskeletal: Pulses present and equal in all extremities, no peripheral edema Motor: Power 5/5 bilaterally, no focal deficits noted Neurological: CN II-XII grossly intact, no focal motor or sensory deficits noted Skin: Intact with no visualized rashes Psych: Normal affect and mood ED course: Old male past medical history of hiatal hernia surgery in 2013 presents with 1 month of abdominal pain. Vital signs upon arrival shows temperature 100.2, heart rate of 107, rest of vital signs within acceptable limits. Lavatory evaluation obtained. CBC, metabolic panel is unremarkable. Patient has mild lipase elevation of 372. Urinalysis unremarkable. CT abdomen and pelvis with contrast shows no acute processes. Ultrasound of the abdomen is unremarkable. More history was obtained from patient. He has been taking Motrin frequent for his back. There is strong clinical suspicion of gastritis. He should that he should follow-up with his general surgeon who also does upper endoscopies. Patient told to abstain from any NSAIDs at the moment. Told to take Zantac [id number]. Patient given prescription for Zofran - Lab Data Result diagrams: 11/20/18 21:12 11/20/18 21:12 Lab Results 11/20/18 11/20/18 11/20/18 Range/Units 21:12 21:12 21:12 WBC 7.0 (3.8-10.6) k/uL RBC 5.96 H (4.30-5.90) m/uL Hgb 17.1 (13.0-17.5) gm/dL Hct 50.1 (39.0-53.0) % MCV 84.0 (80.0-100.0) fL MCH 28.7 (25.0-35.0) pg MCHC 34.2 (31.0-37.0) g/dL RDW 13.8 (11.5-15.5) % Plt Count 280 (150-450) k/uL Neutrophils % 55 % Lymphocytes % 35 % Monocytes % 5 % Eosinophils % 2 % Basophils % 1 % Neutrophils # 3.8 (1.3-7.7) k/uL Lymphocytes # 2.4 (1.0-4.8) k/uL Monocytes # 0.4 (0-1.0) k/uL Eosinophils # 0.2 (0-0.7) k/uL Basophils # 0.1 (0-0.2) k/uL Sodium 141 (137-145) mmol/L Potassium 4.1 (3.5-5.1) mmol/L Chloride 101 (98-107) mmol/L Carbon Dioxide 30 (22-30) mmol/L Anion Gap 10 mmol/L BUN 13 (9-20) mg/dL Creatinine 0.92 (0.66-1.25) mg/dL Est GFR (CKD-EPI)AfAm >90 (>60 ml/min/1.73 sqM) Est GFR (CKD-EPI)NonAf >90 (>60 ml/min/1.73 sqM) Glucose 82 (74-99) mg/dL Calcium 10.2 (8.4-10.2) mg/dL Total Bilirubin 0.6 (0.2-1.3) mg/dL AST 22 (17-59) U/L ALT 29 (21-72) U/L Alkaline Phosphatase 52 (38-126) U/L Total Protein 8.1 (6.3-8.2) g/dL Albumin 5.1 H (3.5-5.0) g/dL Amylase 116 H (30-110) U/L Lipase 372 H (23-300) U/L Urine Color Yellow Urine Appearance Clear (Clear) Urine pH 6.0 (5.0-8.0) Ur Specific [place] 1.025 (1.001-1.035) Urine Protein Trace H (Negative) Urine Glucose (UA) Negative (Negative) Urine Ketones Negative (Negative) Urine Blood Negative (Negative) Urine Nitrite Negative (Negative) Urine Bilirubin Negative (Negative) Urine Urobilinogen <2.0 (<2.0) mg/dL Ur Leukocyte Esterase Negative (Negative) Disposition Clinical Impression: Abdominal pain Disposition: HOME SELF-CARE Condition: Good Instructions: Abdominal Pain (ED) Prescriptions: Ondansetron Odt [Zofran Odt] 4 mg PO Q8HR PRN #12 tab PRN Reason: Nausea Is patient prescribed a controlled substance at d/c from ED?: No Referrals: Huber Zhu MD [Primary Care Provider] - 1-2 days Jesús Mejia MD [STAFF PHYSICIAN] - 1-2 days Time of Disposition: 01:20
[2018-11-20] MEDS ORDERED: ONDANSETRON 4 MG/2 ML VIAL IVP STA (23:07)
[2018-11-20] MEDS ORDERED: MORPHINE SULFATE 2 MG/ML SYRINGE IVP PRN (23:07)
--- NOTE | 2018-11-21 00:16 | CT ---
EXAMINATION TYPE: CT abdomen pelvis w con DATE OF EXAM: 11/21/2018 COMPARISON: 09/26/2016 HISTORY: abdominal pain. CT DLP: 522.3 mGycm Automated exposure control for dose reduction was used. TECHNIQUE: Helical acquisition of images was performed from the lung bases through the pelvis. CONTRAST: Performed without Oral Contrast and with IV Contrast, patient injected with 100mL mL of Isovue 300. FINDINGS: Lung bases are clear. There is no pleural effusion. Heart size is normal. There is no pericardial eff usion. There are surgical clips at the gastric fundus. Liver shows no focal defect. The gallbladder a ppears normal. Bile ducts are not dilated. Spleen appears normal. There is no pancreatic mass. There is no adrenal mass. Kidneys show satisfactory contrast opacification. There is no hydronephrosi s. Bladder distends smoothly. There is no free fluid in the pelvis. There is no inguinal hernia. Ther e is no evidence of a bowel obstruction. I see no intestinal wall thickening. There is no mesenteric edema. Appendix is not definitely seen. There is no sign of a thickened append ix. The lumbar vertebra have normal spacing and alignment. There is no compression fracture. Bony pel vis is intact. There is a surgical clip at the anterior rectum. IMPRESSION: NEGATIVE CT SCAN OF THE ABDOMEN AND PELVIS. I DO NOT SEE A CAUSE FOR ABDOMINAL PAIN. PREVIOUS UPPER A BDOMINAL SURGERY. NO SIGNIFICANT CHANGE COMPARED TO OLD EXAM.
[2018-11-21 00:59] VITALS: BP 126/84; PULSE 79; RESP 18; TEMP 98.2
--- NOTE | 2018-11-21 01:00 | US ---
EXAMINATION TYPE: US abdomen complete DATE OF EXAM: 11/21/2018 COMPARISON: NONE CLINICAL HISTORY: Pain. Pain and nausea. EXAM MEASUREMENTS: Liver Length: 14.0 cm Gallbladder Wall: 0.3 cm CBD: 0.3 cm Spleen: 9.0 cm Right Kidney: 10.6 x 3.5 x 4.0 cm Left Kidney: 10.1 x 4.0 x 3.8 cm Pancreas: Obscured by bowel gas Liver: wnl Gallbladder: wnl Evidence for sonographic Villafana's sign: No CBD: wnl Spleen: wnl Right Kidney: wnl Left Kidney: wnl Upper IVC: wnl Abd Aorta: wnl IMPRESSION: Normal complete abdominal sonogram. No gallstones or dilated ducts. No renal mass or obst ruction.
== END 2018-11-21 01:29 | disposition home or self-care (01) ==
LOC: EC 20:36
DX: R10.13 Epigastric pain (principal); R11.2 Nausea with vomiting, unspecified; R74.8 Abnormal levels of other serum enzymes; I25.2 Old myocardial infarction; F31.9 Bipolar disorder, unspecified; F41.9 Anxiety disorder, unspecified; F17.200 Nicotine dependence, unspecified, uncomplicated; Z79.899 Other long term (current) drug therapy; Z88.0 Allergy status to penicillin; Z90.49 Acquired absence of other specified parts of digestive tract
CPT/HCPCS: 36415; 80053; 82150; 83690; 85025; 81003; 76700; 74177; 99284; 96374; 96375; J2405; J2270; Q9967

== ENCOUNTER 2019-12-22 12:08 | Emergency (ER) | payer OTHER ==
[2019-12-22 12:14] VITALS: BP 106/66; PULSE 83; RESP 19; TEMP 98
[2019-12-22] MEDS ORDERED: HYDROcodone/APAP 7.5-325MG 1 EACH TAB PO ONE (12:16)
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
--- NOTE | 2019-12-22 13:10 | XR ---
EXAMINATION TYPE: XR foot complete RT, XR ankle complete RT DATE OF EXAM: 12/22/2019 CLINICAL HISTORY: Right foot and ankle pain after trauma TECHNIQUE: Frontal, lateral and oblique images of the right ankle and foot are obtained. COMPARISON: None. FINDINGS: There is no acute fracture/dislocation evident in the right ankle. The ankle mortise appe ars within normal limits. The overlying soft tissue appears unremarkable. There is no acute fracture or dislocation evident in the right foot. The joint spaces in the right foot are preserved. [place] ing soft tissue is unremarkable. IMPRESSION: There is no acute fracture or dislocation in the right ankle or foot.
== END 2019-12-22 14:02 | disposition home or self-care (01) ==
LOC: EC 12:08
DX: S93.601A Unspecified sprain of right foot, initial encounter (principal); M25.571 Pain in right ankle and joints of right foot; F41.9 Anxiety disorder, unspecified; F31.9 Bipolar disorder, unspecified; I25.2 Old myocardial infarction; F17.200 Nicotine dependence, unspecified, uncomplicated; Z79.899 Other long term (current) drug therapy; Z88.0 Allergy status to penicillin; V09.9XXA Pedestrian injured in unspecified transport accident, initial encounter; Y92.488 Other paved roadways as the place of occurrence of the external cause
CPT/HCPCS: 29515; 99283

== ENCOUNTER 2020-01-10 13:19 | Emergency (ER) | payer OTHER ==
[2020-01-10 13:23] VITALS: RESP 16
[2020-01-10] MEDS ORDERED: CLINDAMYCIN 600 MG in DEXTROSE 5% IN WATER 50 ML IVPB STA ×2 (14:05)
[2020-01-10] MEDS: SODIUM CHLORIDE 0.9% 500 ML 500 ML IV SCH ×2 (14:20→15:01)
--- NOTE | 2020-01-10 14:25 | ED ---
General Adult HPI - General Chief complaint: Extremity Problem,Nontraumatic Stated complaint: right hand swelling; pain Time Seen by Provider: 01/10/20 13:32 Source: patient, RN notes reviewed Mode of arrival: ambulatory Limitations: no limitations - History of Present Illness Initial comments: 29-year-old male with a past medical history of GERD, [place], migraines, degenerative disc disease, bipolar disorder presents to the emergency department for a chief complaint of right hand swelling and pain. Patient states that yesterday he had a bump to the dorsal aspect of his right hand. States that today the dorsum of his right hand is swollen and red. Patient is able to fully flex and extend all digits of the right hand.. Denies fevers or chills. P atient denies any IV drug abuse. Denies any immunocompromising factors. Denies chronic alcohol use. Patient denies noticing any scrapes or cuts on the right hand.Patient has no other complaints at this time including shortness of breath, chest pain, abdominal pain, nausea or vomiting, headache, or visual changes. - Related Data Home Medications Medication Instructions Recorded Confirmed DULoxetine HCL [Cymbalta] 60 mg PO BID 11/11/17 11/20/18 Ibuprofen [Motrin Ib] 200 mg PO Q6H PRN 11/20/18 11/20/18 Previous Rx's Medication Instructions Recorded Ondansetron Odt [Zofran Odt] 4 mg PO Q8HR PRN #12 tab 11/21/18 Clindamycin [Cleocin] 450 mg PO Q8H 10 Days #90 cap 01/10/20 Allergies Allergy/AdvReac Type Severity Reaction Status Date / Time Penicillins Allergy Severe Anaphylaxis Verified 01/10/20 13:23 Review of Systems ROS Statement: Those systems with pertinent positive or pertinent negative responses have been documented in the HPI. ROS Other: All systems not noted in ROS Statement are negative. Past Medical History Past Medical History: GERD/Reflux, Myocardial Infarction ([place]), Seizure Disorder Additional Past Medical History / Comment(s): migraines, hypoglycemia, hiatal hernia, degenerative disk disease, torn miniscus left knee, muscle condition left eye. . Last Myocardial Infarction Date:: 2009 History of Any Multi-Drug Resistant Organisms: None Reported Past Surgical History: Appendectomy, Tonsillectomy Additional Past Surgical History / Comment(s): Jae Fundoplication, small intestional repair during appendectomy Past Anesthesia/Blood Transfusion Reactions: Family History of Problems w/ Anesthesia, Motion Sickness Additional Past Anesthesia/Blood Transfusion Reaction / Comment(s): [id number] waking up Past Psychological History: Anxiety, Bipolar, Depression Smoking Status: Current every day smoker Past Alcohol Use History: Rare Past Drug Use History: Marijuana - Past Family History Brother(s) Additional Family Medical History / Comment(s): She has one brother and he has no contact with him. Patient does not have any sisters. Patient does not have any children. Father Family Medical History: Coronary Artery Disease (CAD), Myocardial Infarction ([place]) Additional Family Medical History / Comment(s): Others 52 years of age and he has had no contact with him for the past 3 years. He states he does not know his medical history. Mother Family Medical History: No Reported History Additional Family Medical History / Comment(s): Mother is alive at age 51 has back and neck pain from work injury and is on disability.. General Exam Limitations: no limitations General appearance: alert, in no apparent distress Head exam: Present: atraumatic, normocephalic, normal inspection Eye exam: Present: normal appearance, PERRL, EOMI. Absent: scleral icterus, conjunctival injection, periorbital swelling ENT exam: Present: normal exam, mucous membranes moist Neck exam: Present: normal inspection, full ROM. Absent: tenderness, meni ngismus, lymphadenopathy Respiratory exam: Present: normal lung sounds bilaterally. Absent: respiratory distress, wheezes, rales, rhonchi, stridor Cardiovascular Exam: Present: regular rate, normal rhythm, normal heart sounds. Absent: systolic murmur, diastolic murmur, rubs, gallop, clicks Extremities exam: Present: full ROM (Range of motion of the right hand. Patient able to make a full fist and extend all fingers to full extension.), tenderness (Tenderness noted to the dorsal aspect of the right hand worse over the second and third metacarpals), normal capillary refill (Capillary refill less than 2 seconds in the right upper extremity, radial pulse 2+.), other (There is no significant edema noted of the right hand however patient does have erythema to the dorsum of the right hand involving the first second third and fourth metacarpals.). Absent: pedal edema, joint swelling, calf tenderness Neurological exam: Present: alert Psychiatric exam: Present: normal affect, normal mood Course Vital Signs 01/10/20 13:21 Temperature 97.7 F Pulse Rate 97 Respiratory 16 Rate Blood Pressure 121/78 O2 Sat by Pulse 99 Oximetry Medical Decision Making - Medical Decision Making Those are stable. Patient is afebrile. Patient does have erythema noted to the dorsum of the right hand involving the first through fourth metacarpal areas. He does not have any tenderness along the tendon specifically. He is able to fully flex and extend all digits of the right hand. Can make a full fist as well. There is no evidence for tenosynovitis. Patient denies any IV drug use or any other immediate cauterizing factors. CBC CMP unremarkable. White blood cell count 10. CRP is elevated at 46.8. X-ray of the right hand was obtained which shows an unremarkable study. I discussed this case with Dr. [place]. PT was given a dose of IV antibiotics and will continue outpatient antibiotics. He is anaphylactic to penicillin so will be given clindamycin. Cellulitis was marked on skin. I discussed strict return parameters. Discussed returning if cellulitis is continuing to spread after 24 hours or if it spreads significantly in the next 24 hours. Discussed symptoms should start to improve after about 48 hours. Discussed that if he starts having any fevers or severe pain with moving the fingers he needs to return immediately to the emergency department. He is in agreement with this. - Lab Data Result diagrams: 01/10/20 14:21 01/10/20 14:21 Lab Results 01/10/20 01/10/20 01/10/20 Range/Units 14:21 14:21 14:21 WBC 10.3 (3.8-10.6) k/uL RBC 4.55 (4.30-5.90) m/uL Hgb 13.7 (13.0-17.5) gm/dL Hct 41.1 (39.0-53.0) % MCV 90.3 (80.0-100.0) fL MCH 30.1 (25.0-35.0) pg MCHC 33.3 (31.0-37.0) g/dL RDW 13.3 (11.5-15.5) % Plt Count 243 (150-450) k/uL Neutrophils % 73 % Lymphocytes % 17 % Monocytes % 5 % Eosinophils % 3 % Basophils % 1 % Neutrophils # 7.5 (1.3-7.7) k/uL Lymphocytes # 1.8 (1.0-4.8) k/uL Monocytes # 0.5 (0-1.0) k/uL Eosinophils # 0.3 (0-0.7) k/uL Basophils # 0.1 (0-0.2) k/uL Sodium 138 (137-145) mmol/L Potassium 4.1 (3.5-5.1) mmol/L Chloride 101 (98-107) mmol/L Carbon Dioxide 30 (22-30) mmol/L Anion Gap 7 mmol/L BUN 14 (9-20) mg/dL Creatinine 0.78 (0.66-1.25) mg/dL Est GFR (CKD-EPI)AfAm >90 (>60 ml/min/1.73 sqM) Est GFR (CKD-EPI)NonAf >90 (>60 ml/min/1.73 sqM) Glucose 91 (74-99) mg/dL Plasma Lactic Acid Hipolito 0.7 (0.7-2.0) mmol/L Calcium 9.3 (8.4-10.2) mg/dL Total Bilirubin 0.3 (0.2-1.3) mg/dL AST 50 (17-59) U/L ALT 23 (4-49) U/L Alkaline Phosphatase 68 (38-126) U/L C-Reactive Protein 46.8 H (<10.0) mg/L Total Protein 6.6 (6.3-8.2) g/dL Albumin 4.3 (3.5-5.0) g/dL Disposition Clinical Impression: Cellulitis of right hand, Hand pain Disposition: HOME SELF-CARE Condition: Good Instructions (If sedation given, give patient instructions): Cellulitis (ED) Additional Instructions: Please take Motrin and Tylenol for pain. Take antibiotic as directed. Monitor for worsening symptoms. If after 24 hours redness is spreading return to the emergency department. It may spread a small amount in the next 24 hours until antibiotics kick in. If you start to have any fevers or significant pain with moving her fingers return immediately to the emergency department as well. Otherwise follow-up with primary care in 1-2 days. Prescriptions: Clindamycin [Cleocin] 450 mg PO Q8H 10 Days #90 cap Is patient prescribed a controlled substance at d/c from ED?: No Referrals: Huber Zhu MD [REFERRING] - 1-2 days Time of Disposition: 15:14
[2020-01-10 14:38] LABS: Basophils # (A) 0.1 k/uL (0-0.2); Basophils % (A) 1 %; Eosinophils # (A) 0.3 k/uL (0-0.7); Eosinophils % (A) 3 %; HCT 41.1 % (39.0-53.0); HGB 13.7 gm/dL (13.0-17.5); Lymphocytes # (A) 1.8 k/uL (1.0-4.8); Lymphocytes % (A) 17 %; MCH 30.1 pg (25.0-35.0); MCHC 33.3 g/dL (31.0-37.0); MCV 90.3 fL (80.0-100.0); Mean Platelet Volume 7.3; Monocytes # (A) 0.5 k/uL (0-1.0); Monocytes % (A) 5 %; Neutrophils # (A) 7.5 k/uL (1.3-7.7); Neutrophils % (A) 73 %; Platelet Count 243 k/uL (150-450); RBC 4.55 m/uL (4.30-5.90); RDW 13.3 % (11.5-15.5); WBC 10.3 k/uL (3.8-10.6)
--- NOTE | 2020-01-10 14:48 | XR ---
EXAMINATION TYPE: XR hand complete RT DATE OF EXAM: 01/10/2020 CLINICAL HISTORY: Swelling. Cellulitis. Evaluate for calcific TECHNIQUE: Frontal, lateral and oblique images of the right hand are obtained. COMPARISON: None. FINDINGS: There is no acute fracture/dislocation evident in the right hand. The joint spaces in the i hand appear within normal limits. The overlying soft tissue appears unremarkable without suspiciou s radiodense foreign body identified. IMPRESSION: Unremarkable study.
[2020-01-10 14:55] LABS: ALT 23 U/L (4-49); AST 50 U/L (17-59); African American GFR (CKD) >90 (>60 ml/min/1.73 sqM); Albumin 4.3 g/dL (3.5-5.0); Alkaline Phosphatase 68 U/L (38-126); Anion Gap 7 mmol/L; Blood Urea Nitrogen 14 mg/dL (9-20); C Reactive Protein 46.8 mg/L (<10.0); Calcium 9.3 mg/dL (8.4-10.2); Carbon Dioxide 30 mmol/L (22-30); Chloride 101 mmol/L (98-107); Glucose 91 mg/dL (74-99); Non-African American GFR(CKD) >90 (>60 ml/min/1.73 sqM); Potassium 4.1 mmol/L (3.5-5.1); Sodium 138 mmol/L (137-145); Total Bilirubin 0.3 mg/dL (0.2-1.3); Total Protein 6.6 g/dL (6.3-8.2)
[2020-01-10] MEDS ORDERED: KETOROLAC 30 MG/ML 1 ML VIAL IVP STA (14:57)
[2020-01-10 16:11] VITALS: BP 138/74; PULSE 79; TEMP 98
== END 2020-01-10 16:10 | disposition home or self-care (01) ==
LOC: EC 13:19
DX: L03.113 Cellulitis of right upper limb (principal); R79.82 Elevated C-reactive protein (CRP); M51.9 Unspecified thoracic, thoracolumbar and lumbosacral intervertebral disc disorder; F32.9 Major depressive disorder, single episode, unspecified; F41.9 Anxiety disorder, unspecified; F17.200 Nicotine dependence, unspecified, uncomplicated; Z88.0 Allergy status to penicillin; Z79.1 Long term (current) use of non-steroidal anti-inflammatories (NSAID); Z79.899 Other long term (current) drug therapy
CPT/HCPCS: 36415; 80053; 83605; 85025; 86140; 87040; 73130; 99283; 96365; 96375; 96361; J1885

== ENCOUNTER 2020-01-11 20:06 | Emergency (ER) | payer OTHER ==
[2020-01-11] MEDS ORDERED: CLINDAMYCIN 600 MG in DEXTROSE 5% IN WATER 50 ML IVPB ONE ×2 (22:00)
[2020-01-11 22:14] LABS: Basophils # (A) 0.1 k/uL (0-0.2); Basophils % (A) 1 %; Eosinophils # (A) 0.3 k/uL (0-0.7); Eosinophils % (A) 4 %; HCT 37.2 % (39.0-53.0); HGB 12.5 gm/dL (13.0-17.5); Lymphocytes # (A) 1.6 k/uL (1.0-4.8); Lymphocytes % (A) 25 %; MCHC 33.7 g/dL (31.0-37.0); MCV 92.1 fL (80.0-100.0); Mean Platelet Volume 7.8; Monocytes # (A) 0.3 k/uL (0-1.0); Monocytes % (A) 5 %; Neutrophils % (A) 63 %; Platelet Count 213 k/uL (150-450); RBC 4.04 m/uL (4.30-5.90); RDW 13.4 % (11.5-15.5); WBC 6.4 k/uL (3.8-10.6)
[2020-01-11] MEDS ORDERED: MORPHINE SULFATE 4 MG/ML SYRINGE IVP STA (22:19)
[2020-01-11 22:23] LABS: ALT 18 U/L (4-49); AST 32 U/L (17-59); African American GFR (CKD) >90 (>60 ml/min/1.73 sqM); Albumin 3.8 g/dL (3.5-5.0); Alkaline Phosphatase 51 U/L (38-126); Anion Gap 7 mmol/L; Blood Urea Nitrogen 17 mg/dL (9-20); Calcium 8.5 mg/dL (8.4-10.2); Carbon Dioxide 26 mmol/L (22-30); Chloride 105 mmol/L (98-107); Glucose 102 mg/dL (74-99); Non-African American GFR(CKD) >90 (>60 ml/min/1.73 sqM); Potassium 4.3 mmol/L (3.5-5.1); Sodium 138 mmol/L (137-145); Total Bilirubin 0.1 mg/dL (0.2-1.3); Total Protein 5.9 g/dL (6.3-8.2)
--- NOTE | 2020-01-11 22:45 | ED ---
Skin/Abscess/FB HPI - General Chief complaint: Skin/Abscess/Foreign Body Stated complaint: hand/arm swelling-revisit Time Seen by Provider: 01/11/20 21:14 Source: patient Mode of arrival: ambulatory Limitations: no limitations - History of Present Illness Initial comments: Bhargav is a pleasant 29-year-old gentleman who presents the ER today for reevaluation of swelling and pain of the right hand. Patient was seen and evaluated yesterday, he had mild leukocytosis and negative x-ray he is prescribed clindamycin which he reports he has taken 6 doses of. Patient reports that despite being compliant with anti-biotics and taking Tylenol and Motrin for the pain he's noticed worsening swelling though no redness in his right hand which prompted him come back for reevaluation. Patient states he's been trying to keep the hand elevated though she's also been using his thumb he has some pain with motion. He has not noticed any redness of the hand but does note that it's warm and swollen. Patient denies any associated fevers chills nausea vomiting or illness. He is nondiabetic. Patient denies any trauma to the hand. - Related Data Home Medications Medication Instructions Recorded Confirmed DULoxetine HCL [Cymbalta] 60 mg PO BID 11/11/17 01/11/20 Ibuprofen [Motrin Ib] 200 mg PO Q6H PRN 11/20/18 01/11/20 Diazepam [Valium] 5 mg PO BID PRN 01/11/20 01/11/20 Mirtazapine [Remeron] 15 mg PO HS PRN 01/11/20 01/11/20 Previous Rx's Medication Instructions Recorded Clindamycin [Cleocin] 450 mg PO Q8H 10 Days #90 cap 01/10/20 Allergies Allergy/AdvReac Type Severity Reaction Status Date / Time Penicillins Allergy Severe Anaphylaxis Verified 01/11/20 22:42 Review of Systems ROS Statement: Those systems with pertinent positive or pertinent negative responses have been documented in the HPI. ROS Other: All systems not noted in ROS Statement are negative. Past Medical History Past Medical History: GERD/Reflux, Myocardial Infarction ([place]), Seizure Disorder Additional Past Medical History / Comment(s): migraines, hypoglycemia, hiatal hernia, degenerative disk disease, torn miniscus left knee, muscle condition left eye. . Last Myocardial Infarction Date:: 2010 History of Any Multi-Drug Resistant Organisms: None Reported Past Surgical History: Appendectomy, Tonsillectomy Additional Past Surgical History / Comment(s): Jae Fundoplication, small intestional repair during appendectomy Past Anesthesia/Blood Transfusion Reactions: Family History of Problems w/ Anesthesia, Motion Sickness Additional Past Anesthesia/Blood Transfusion Reaction / Comment(s): [id number] waking up Past Psychological History: Anxiety, Bipolar, Depression Smoking Status: Current every day smoker Past Alcohol Use History: Rare Past Drug Use History: Marijuana - Past Family History Brother(s) Additional Family Medical History / Comment(s): She has one brother and he has no contact with him. Patient does not have any sisters. Patient does not have any children. Father Family Medical History: Coronary Artery Disease (CAD), Myocardial Infarction ([place]) Additional Family Medical History / Comment(s): Others 52 years of age and he has had no contact with him for the past 3 years. He states he does not know his medical history. Mother Family Medical History: No Reported History Additional Family Medical History / Comment(s): Mother is alive at age 51 has back and neck pain from work injury and is on disability.. General Exam - General Exam Comments Initial Comments: Physical Exam GENERAL: Patient is well-developed and well-nourished. Patient is nontoxic and well-hydrated and is in no distress. HENT: Normocephalic, Atraumatic. EYES: PERRL, EOMI PULMONARY: Unlabored respirations. CARDIOVASCULAR: RRR Warm and well perfused extremities ABDOMEN: Non-distended SKIN: The right hand is swollen and warm to the touch, there is no erythema or induration, there are no obvious open wounds, no obvious abscess : Deferred NEUROLOGIC: Alert and oriented Normal speech Normal gait MUSCULOSKELETAL: Moving all extremities with no apparent injury PSYCHIATRIC: No SI/HI Limitations: no limitations Course Vital Signs 01/11/20 01/11/20 20:19 23:19 Temperature 98.6 F 98.3 F Pulse Rate 96 77 Respiratory 20 18 Rate Blood Pressure 135/87 122/82 O2 Sat by Pulse 98 98 Oximetry Medical Decision Making - Medical Decision Making The patient was seen and evaluated, history is obtained from the patient and review of medical record sign 29-year-old nondiabetic male with swelling and tenderness of the right hand and right forearm, x-ray yesterday showed no foreign bodies or obvious injuries Stated hand is more swollen it is warm to touch but there is no cellulitis no signs of abscess no signs of skin injury Repeat labs are obtained patient was given an IV dose of Unasyn Labs revealed resolution of leukocytosis, no other significant abnormalities are noted. At this time I feel the patient stable for discharge home continued oral antibiotics and follow with primary care. Supportive care including ice and elevation of the hand were discussed with patient. All questions pertaining care were answered return parameters were discussed patient was discharged home in stable condition. - Lab Data Result diagrams: 01/11/20 22:00 01/11/20 22:00 Lab Results 01/11/20 01/11/20 Range/Units 22:00 22:00 WBC 6.4 (3.8-10.6) k/uL RBC 4.04 L (4.30-5.90) m/uL Hgb 12.5 L (13.0-17.5) gm/dL Hct 37.2 L (39.0-53.0) % MCV 92.1 (80.0-100.0) fL MCH 31.0 (25.0-35.0) pg MCHC 33.7 (31.0-37.0) g/dL RDW 13.4 (11.5-15.5) % Plt Count 213 (150-450) k/uL Neutrophils % 63 % Lymphocytes % 25 % Monocytes % 5 % Eosinophils % 4 % Basophils % 1 % Neutrophils # 4.0 (1.3-7.7) k/uL Lymphocytes # 1.6 (1.0-4.8) k/uL Monocytes # 0.3 (0-1.0) k/uL Eosinophils # 0.3 (0-0.7) k/uL Basophils # 0.1 (0-0.2) k/uL Sodium 138 (137-145) mmol/L Potassium 4.3 (3.5-5.1) mmol/L Chloride 105 (98-107) mmol/L Carbon Dioxide 26 (22-30) mmol/L Anion Gap 7 mmol/L BUN 17 (9-20) mg/dL Creatinine 0.65 L (0.66-1.25) mg/dL Est GFR (CKD-EPI)AfAm >90 (>60 ml/min/1.73 sqM) Est GFR (CKD-EPI)NonAf >90 (>60 ml/min/1.73 sqM) Glucose 102 H (74-99) mg/dL Calcium 8.5 (8.4-10.2) mg/dL Total Bilirubin 0.1 L (0.2-1.3) mg/dL AST 32 (17-59) U/L ALT 18 (4-49) U/L Alkaline Phosphatase 51 (38-126) U/L Total Protein 5.9 L (6.3-8.2) g/dL Albumin 3.8 (3.5-5.0) g/dL Disposition Clinical Impression: Swelling of right hand Disposition: HOME SELF-CARE Condition: Stable Additional Instructions: Continue to take your antibiotics as prescribed, contact her primary care office tomorrow for follow-up by the end of the week for reevaluation, keep the hand elevated and apply ice for swelling, return to the ER Worsening pain redness or any new or concerning symptoms. Is patient prescribed a controlled substance at d/c from ED?: No Referrals: None,Stated [Primary Care Provider] - 1-2 days
[2020-01-11 23:20] VITALS: BP 122/82; PULSE 77; RESP 18; TEMP 98.3
== END 2020-01-11 23:20 | disposition home or self-care (01) ==
LOC: EC 20:06
DX: M79.89 Other specified soft tissue disorders (principal); M79.644 Pain in right finger(s); I25.2 Old myocardial infarction; F41.9 Anxiety disorder, unspecified; F32.9 Major depressive disorder, single episode, unspecified; F17.200 Nicotine dependence, unspecified, uncomplicated; Z79.899 Other long term (current) drug therapy; Z88.0 Allergy status to penicillin
CPT/HCPCS: 36415; 80053; 85025; 87040; 99283; 96365; 96375; J2270

== ENCOUNTER 2020-02-19 17:27 | Emergency (ER) | payer OTHER ==
[2020-02-19 17:32] VITALS: BP 134/88; PULSE 86; RESP 18; TEMP 99.3
--- NOTE | 2020-02-19 18:18 | ED ---
Extremity Problem HPI - General Chief complaint: Extremity Problem,Nontraumatic Stated complaint: shoulder pain Time Seen by Provider: 02/19/20 17:35 Source: patient, RN notes reviewed Mode of arrival: ambulatory Limitations: no limitations - History of Present Illness Initial comments: 29-year-old male presents emergency Department chief complaint right shoulder pain. Patient states she's had some discomfort last couple weeks. Patient states started after his dog pulled him quickly and the leash. Patient states he feels like his shoulder is popping out. Patient states it just looks different than his other one. He does have good range of motion no paresthesias denies any neck pain no weakness. Patient is right-hand dominant no chest pain or shortness breath. - Related Data Home Medications Medication Instructions Recorded Confirmed DULoxetine HCL [Cymbalta] 60 mg PO DAILY 11/11/17 02/19/20 Ibuprofen [Motrin Ib] 600 mg PO Q6H PRN 11/20/18 02/19/20 Diazepam [Valium] 5 mg PO TID 01/11/20 02/19/20 DULoxetine HCL [Cymbalta] 30 mg PO DAILY 02/19/20 02/19/20 Mirtazapine 30 mg PO HS PRN 02/19/20 02/19/20 Allergies Allergy/AdvReac Type Severity Reaction Status Date / Time Penicillins Allergy Severe Anaphylaxis Verified 02/19/20 17:57 Review of Systems ROS Statement: Those systems with pertinent positive or pertinent negative responses have been documented in the HPI. ROS Other: All systems not noted in ROS Statement are negative. Past Medical History Past Medical History: GERD/Reflux, Myocardial Infarction ([place]), Seizure Disorder Additional Past Medical History / Comment(s): migraines, hypoglycemia, hiatal hernia, degenerative disk disease, torn miniscus left knee, muscle condition left eye. . Last Myocardial Infarction Date:: 2009 History of Any Multi-Drug Resistant Organisms: None Reported Past Surgical History: Appendectomy, Tonsillectomy Additional Past Surgical History / Comment(s): Jae Fundoplication, small intestional repair during appendectomy Past Anesthesia/Blood Transfusion Reactions: Family History of Problems w/ Anesthesia, Motion Sickness Additional Past Anesthesia/Blood Transfusion Reaction / Comment(s): [id number] waking up Past Psychological History: Anxiety, Bipolar, Depression Smoking Status: Current every day smoker Past Alcohol Use History: Rare Past Drug Use History: Marijuana - Past Family History Brother(s) Additional Family Medical History / Comment(s): She has one brother and he has no contact with him. Patient does not have any sisters. Patient does not have any children. Father Family Medical History: Coronary Artery Disease (CAD), Myocardial Infarction ([place]) Additional Family Medical History / Comment(s): Others 52 years of age and he has had no contact with him for the past 3 years. He states he does not know his medical history. Mother Family Medical History: No Reported History Additional Family Medical History / Comment(s): Mother is alive at age 51 has back and neck pain from work injury and is on disability.. General Exam Limitations: no limitations General appearance: alert, in no apparent distress Head exam: Present: atraumatic, normocephalic, normal inspection Eye exam: Present: normal appearance, PERRL, EOMI. Absent: scleral icterus, conjunctival injection, periorbital swelling ENT exam: Present: normal exam, normal oropharynx, mucous membranes moist Neck exam: Present: normal inspection, full ROM. Absent: tenderness, meningismus, lymphadenopathy Respiratory exam: Present: normal lung sounds bilaterally. Absent: respiratory distress, wheezes, rales, rhonchi, stridor Cardiovascular Exam: Present: regular rate, normal rhythm, normal heart sounds. Absent: systolic murmur, diastolic murmur, rubs, gallop, clicks Extremities exam: Present: other (Right shoulder there is no localized tenderness. Patient has full range of motion Reports 2 seconds of all digits of the upper extremities, radial pulses equal bilaterally patient has pain with neers impingement and apprehension test) Course Vital Signs 02/19/20 17:28 Temperature 99.3 F Pulse Rate 86 Respiratory 18 Rate Blood Pressure 134/88 O2 Sat by Pulse 100 Oximetry Medical Decision Making - Medical Decision Making X-rays unremarkable. I do feel the patient is calm underlying rotator cuff syndrome as he has some winging of his scapula, mild muscular atrophy. Patient will follow-up with orthopedics return for any worsening symptoms. Disposition Clinical Impression: Rotator cuff syndrome of right shoulder Disposition: HOME SELF-CARE Condition: Stable Instructions (If sedation given, give patient instructions): Rotator Cuff Injury (ED), Exercises for Internal and External Shoulder Rotation (ED), Exercises for Shoulder Flexion and Extension (ED), Exercises for Shoulder Abduction and Adduction (ED) Additional Instructions: Please return to the Emergency Department if symptoms worsen or any other concerns. Is patient prescribed a controlled substance at d/c from ED?: No Referrals: None,Stated [Primary Care Provider] - 1-2 days Solo Villafana MD [STAFF PHYSICIAN] - 1-2 days Time of Disposition: 18:57
--- NOTE | 2020-02-19 18:21 | XR ---
EXAMINATION TYPE: XR shoulder complete RT DATE OF EXAM: 02/19/2020 COMPARISON: NONE HISTORY: Pain x2 weeks TECHNIQUE: Shoulder examined in 3 ejections FINDINGS: The humeral head articulates with the glenoid. The acromio-clavicular junction is normal. No acute fractures or dislocations are evident. A follow up study can be performed 7-10 days from acute trauma for continued pain. IMPRESSION: 1. Normal three-view right Shoulder
== END 2020-02-19 19:07 | disposition home or self-care (01) ==
LOC: EC 17:27
DX: M75.101 Unspecified rotator cuff tear or rupture of right shoulder, not specified as traumatic (principal); I25.2 Old myocardial infarction; F41.9 Anxiety disorder, unspecified; F31.9 Bipolar disorder, unspecified; F17.200 Nicotine dependence, unspecified, uncomplicated; Z79.899 Other long term (current) drug therapy; Z88.0 Allergy status to penicillin
CPT/HCPCS: 99283

== ENCOUNTER 2020-08-08 20:10 | Emergency (ER) | payer OTHER ==
[2020-08-08 20:17] VITALS: RESP 18
--- NOTE | 2020-08-08 20:54 | XR ---
EXAMINATION TYPE: XR hand complete RT DATE OF EXAM: 08/08/2020 COMPARISON: NONE HISTORY: Trauma. Dropped a log on the hand. TECHNIQUE: 3 views FINDINGS: There is soft tissue swelling on the dorsum of the hand. The metacarpals are intact. I see no fracture. Joint spaces are normal. IMPRESSION: Soft tissue swelling. No fracture seen.
[2020-08-08] MEDS ORDERED: LIDOCAINE 1% INJ 10MG/ML (20 ML MDV) SQ STA (21:14)
[2020-08-08] MEDS ORDERED: HYDROcodone/APAP 5-325MG 1 EACH TAB PO STA (21:15)
--- NOTE | 2020-08-08 22:47 | ED ---
General Adult HPI - General Chief complaint: Extremity Injury, Upper Stated complaint: R Hand Injury Time Seen by Provider: 08/08/20 21:05 Source: patient, RN notes reviewed, old records reviewed Mode of arrival: ambulatory Limitations: no limitations - History of Present Illness Initial comments: 30-year-old male patient presents to ED for evaluation of laceration to dorsal aspect of right hand. Patient is reportedly chopping wood when it on a log fell on his hand. Denies any other injury. States tetanus is up-to-date. Systemic: Pt denies fatigue, fever/chills, rash. Pt denies weakness, night sweats, weight loss. Neuro: Pt denies headache, visual disturbances, syncope or pre-syncope. HEENT: Pt denies ocular discharge or irritation, otalgia, rhinorrhea, pharyngitis or notable lymphadenopathy. Cardiopulmonary: Pt denies chest pain, SOB, heart palpitations, dyspnea on exertion. Abdominal/GI: Pt denies abdominal pain, n/v/d. : Pt denies dysuria, burning w/ urination, frequency/urgency. Denies new onset urinary or bowel incontinence. Neuro: Pt denies new onset weakness, paresthesias. - Related Data Home Medications Medication Instructions Recorded Confirmed DULoxetine HCL [Cymbalta] 60 mg PO DAILY 11/11/17 08/08/20 diazePAM [Valium] 5 mg PO TID 01/11/20 08/08/20 DULoxetine HCL [Cymbalta] 30 mg PO DAILY 02/19/20 08/08/20 Mirtazapine 30 mg PO HS PRN 02/19/20 08/08/20 Cholecalciferol [Vitamin D3 (25 3,000 unit PO DAILY 08/08/20 08/08/20 Mcg = 1000 Iu)] HYDROcodone/APAP 7.5-325MG [White 1 tab PO TID 08/08/20 08/08/20 7.5-325] Allergies Allergy/AdvReac Type Severity Reaction Status Date / Time Penicillins Allergy Severe Anaphylaxis Verified 08/08/20 22:09 Review of Systems ROS Statement: Those systems with pertinent positive or pertinent negative responses have been documented in the HPI. ROS Other: All systems not noted in ROS Statement are negative. Past Medical History Past Medical History: GERD/Reflux, Myocardial Infarction ([place]), Seizure Disorder Additional Past Medical History / Comment(s): migraines, hypoglycemia, hiatal hernia, degenerative disk disease, torn miniscus left knee, muscle condition left eye. . Last Myocardial Infarction Date:: 2009 History of Any Multi-Drug Resistant Organisms: None Reported Past Surgical History: Appendectomy, Tonsillectomy Additional Past Surgical History / Comment(s): Jae Fundoplication, small intestional repair during appendectomy Past Anesthesia/Blood Transfusion Reactions: Family History of Problems w/ Anesthesia, Motion Sickness Additional Past Anesthesia/Blood Transfusion Reaction / Comment(s): [id number] waking up Past Psychological History: Anxiety, Bipolar, Depression Smoking Status: Current every day smoker Past Alcohol Use History: Rare Past Drug Use History: Marijuana - Past Family History Brother(s) Additional Family Medical History / Comment(s): She has one brother and he has no contact with him. Patient does not have any sisters. Patient does not have any children. Father Family Medical History: Coronary Artery Disease (CAD), Myocardial Infarction ([place]) Additional Family Medical History / Comment(s): Others 52 years of age and he has had no contact with him for the past 3 years. He states he does not know his medical history. Mother Family Medical History: No Reported History Additional Family Medical History / Comment(s): Mother is alive at age 51 has back and neck pain from work injury and is on disability.. General Exam - General Exam Comments Initial Comments: Constitutional: NAD, AOX3, Pt has pleasant affect. HEENT: NC/AT, trachea midline, neck supple, no lymphadenopathy. External ears appear normal, without discharge. Mucous membranes moist. Eyes PERRLA, EOM intact. There is no scleral icterus. No pallor noted. Cardiopulmonary: RRR, no murmurs, rubs or gallops, no JVD noted. Lungs CTAB in anterior and posterior rashid. No peripheral edema. Abdominal exam: Abdomen soft and non-distended. Abdomen non-tender to palpation in all 4 quadrants. Bowel sounds active in LLQ. No hepatosplenomegaly. No ecchymosis Neuro: CN II-XII grossly intact. MSK: 1 cm dorsal aspect of right hand midline. Being that approximately once a blood of the suture. Mild hematoma noted mild tenderness in the area. Range of motion slightly limited secondary to pain second third and fourth digits. Neurovascularly intact. Distal pulses are intact and equal. Patient placed in volar splint neurovascular intact before and after splint placement. The pulse +2 capillary refill less than 2 seconds. Limitations: no limitations Course Vital Signs 08/08/20 08/08/20 08/08/20 20:14 21:36 22:57 Temperature 98.2 F 98.7 F Pulse Rate 118 H 111 H 107 H Respiratory 18 18 18 Rate Blood Pressure 127/90 125/79 O2 Sat by Pulse 94 L 98 Oximetry Procedures - Laceration Laceration #1 Consent Obtained: verbal consent Site: hand Size (cm): 1 Description: linear Depth: simple, single layer Anesthetic Used: lidocaine 1% Anesthesia Technique: local infiltration Amount (mls): 1 Pre-repair: wound explored, irrigated extensively, deep structures intact Type of Sutures: nylon Size of Sutures: 5-0 Number of Sutures: 2 Technique: simple, interrupted Patient Tolerated Procedure: well, no complications - Orthopedic Splinting/Casting Injury #2 Side: right Upper Extremity Immobilizer: volar splint Medical Decision Making - Medical Decision Making 30-year-old male patient proceeded laceration and hand contusion. Plain film negative. Laceration repair patient placed in a volar splint discharged with outpatient orthopedic follow-up. Case discussed with Dr. Mistry. Disposition Clinical Impression: Hand contusion, Laceration Disposition: HOME SELF-CARE Condition: Stable Instructions (If sedation given, give patient instructions): Laceration (ED), Hematoma (ED) Additional Instructions: follow-up with primary care provider tomorrow. Follow-up orthopedic consult tomorrow. Keep splint on. Return to ER with any worsening symptoms. Is patient prescribed a controlled substance at d/c from ED?: No Referrals: Horacio Oliva MD [Primary Care Provider] - 1-2 days Alberto Andrews DO [Doctor of Osteopathic Medicine] - 1-2 days
[2020-08-08 22:58] VITALS: BP 125/79; PULSE 107; TEMP 98.7
== END 2020-08-08 22:53 | disposition home or self-care (01) ==
LOC: EC 20:10
DX: S61.411A Laceration without foreign body of right hand, initial encounter (principal); F41.9 Anxiety disorder, unspecified; F31.9 Bipolar disorder, unspecified; G40.909 Epilepsy, unspecified, not intractable, without status epilepticus; I25.2 Old myocardial infarction; F17.200 Nicotine dependence, unspecified, uncomplicated; Z79.899 Other long term (current) drug therapy; Z88.0 Allergy status to penicillin; W20.8XXA Other cause of strike by thrown, projected or falling object, initial encounter
CPT/HCPCS: 73130; 99283; 12001; J2001

== ENCOUNTER 2020-10-15 16:55 | Emergency (ER) | payer OTHER ==
[2020-10-15 17:09] VITALS: RESP 16
--- NOTE | 2020-10-15 17:19 | ED ---
Seizure HPI - General Chief Complaint: Seizure Stated Complaint: Seizure Time Seen by Provider: 10/15/20 16:55 Source: patient Mode of arrival: EMS Limitations: no limitations - History of Present Illness Initial Comments: Is a 30-year-old male with a history of seizures who presents emergency department for suspected seizure. The patient states he was walking into his kitchen when he suddenly woke up on the floor. He states that he did not have any preceding symptoms. He states that occasionally before seizure he will have a humming sensation prior to the seizure however this time he did not. There is no one there to witness the seizure. Unsure exactly how long it lasted. He states that this is typical for his previous seizures that he's had. He states his last seizure was 3 weeks ago however wasn't as severe and there is somebody there to witness it. He did not come in and that time. Patient used to be a little metal and follow-up with neurology however has not done so in a number of years. He states that he smokes marijuana for his seizures. He does admit to having some mild cough and fevers and chills at home. He's had a little bit of diarrhea. No other URI symptoms. No nausea or vomiting. Otherwise denies any other drug use. States that he's been taking his other medications including Valium and Cymbalta as prescribed. Per EMS the patient had an episode of tonic episode in the EMS rig and the patient was verbal throughout the entire episode and states that this is what his seizures are typically like. The patient was awake and alert and oriented upon my initial evaluation without any postictal state. Patient does state that he has a headache but this is typical after his seizures. Is not any different than typical. He does admit to little bit of posterior neck pain as well. - Related Data Home Medications Medication Instructions Recorded Confirmed DULoxetine HCL [Cymbalta] 60 mg PO DAILY 11/11/17 08/08/20 diazePAM [Valium] 5 mg PO TID 01/11/20 08/08/20 DULoxetine HCL [Cymbalta] 30 mg PO DAILY 02/19/20 08/08/20 Mirtazapine 30 mg PO HS PRN 02/19/20 08/08/20 Cholecalciferol [Vitamin D3 (25 3,000 unit PO DAILY 08/08/20 08/08/20 Mcg = 1000 Iu)] HYDROcodone/APAP 7.5-325MG [[place] 1 tab PO TID 08/08/20 08/08/20 7.5-325] Previous Rx's Medication Instructions Recorded lamoTRIgine [LaMICtal] 100 mg PO DAILY #30 tab 10/15/20 Allergies Allergy/AdvReac Type Severity Reaction Status Date / Time Penicillins Allergy Severe Anaphylaxis Verified 10/15/20 17:10 ketorolac [From Toradol] Allergy Unknown Verified 10/15/20 17:10 tramadol Allergy Unknown Verified 10/15/20 17:10 Review of Systems ROS Statement: Those systems with pertinent positive or pertinent negative responses have been documented in the HPI. ROS Other: All systems not noted in ROS Statement are negative. Past Medical History Past Medical History: GERD/Reflux, Myocardial Infarction ([place]), Seizure Disorder Additional Past Medical History / Comment(s): migraines, hypoglycemia, hiatal hernia, degenerative disk disease, torn miniscus left knee, muscle condition left eye. . Last Myocardial Infarction Date:: 2009 History of Any Multi-Drug Resistant Organisms: None Reported Past Surgical History: Appendectomy, Tonsillectomy Additional Past Surgical History / Comment(s): Jae Fundoplication, small intestional repair during appendectomy Past Anesthesia/Blood Transfusion Reactions: Family History of Problems w/ Anesthesia, Motion Sickness Additional Past Anesthesia/Blood Transfusion Reaction / Comment(s): MOTHER-PONV- diff waking up Past Psychological History: Anxiety, Bipolar, Depression Smoking Status: Current every day smoker Past Alcohol Use History: Rare Past Drug Use History: Marijuana - Past Family History Brother(s) Additional Family Medical History / Comment(s): She has one brother and he has no contact with him. Patient does not have any sisters. Patient does not have any children. Father Family Medical History: Coronary Artery Disease (CAD), Myocardial Infarction ([place]) Additional Family Medical History / Comment(s): Others 52 years of age and he has had no contact with him for the past 3 years. He states he does not know his medical history. Mother Family Medical History: No Reported History Additional Family Medical History / Comment(s): Mother is alive at age 51 has back and neck pain from work injury and is on disability.. General Exam - General Exam Comments Initial Comments: Constitutional: Awake alert Appears comfortable Head: Normocephalic atraumatic , does have some tenderness to the posterior scalp however no ecchymosis or abrasions, no tongue biting Eyes: no conjunctival injection No scleral icterus EOMI, pupils are 4 mm and reactive bilaterally Neck: No JVD Supple, there is some midline tenderness in the upper cervical spine Heart: Regular rate rhythm normal S1-S2 no murmurs Lungs: Clear to auscultation bilaterally No wheezing No rales Abdomen: Soft nondistended nontender Extremities: Non edematous DP pulses intact Radial pulses intact Neuro: A&Ox3, CN 2 through 12 are grossly intact, 5 out of 5 strength in upper and lower extremities bilaterally, sensation intact to light touch in all extremities No focal neurologic deficits Psych: Appropriate mood and affect Limitations: no limitations Course Vital Signs 10/15/20 17:03 Temperature 98.7 F Pulse Rate 79 Respiratory 16 Rate Blood Pressure 121/79 O2 Sat by Pulse 100 Oximetry - Reevaluation(s) Reevaluation #1: EKG showing normal sinus rhythm with rate of 80. There is no abnormal ST segment changes or T-wave inversions. QTC is 408. Other intervals normal. No ectopy. 10/15/20 17:38 Medical Decision Making - Medical Decision Making Is a 30-year-old male who presents emergency department for a seizure at home. The patient was evaluated at bedside and no focal neurologic deficits per there is no postictal state. No tongue biting or urination. Blood work was obtained and unremarkable. CT of the head and neck also unremarkable. Chest x-ray did not have any evidence for pneumonia. Coban swab was sent and will be followed up as an outpatient. The patient does not have any serious evidence of cold at this time. The patient was given a dose of Lamictal which she's been on previously and a prescription for this. He was told to follow-up with primary doctor and get a referral to an other neurologist. Return if he has any worsening or changing symptoms. All questions were answered. - Lab Data Result diagrams: 10/15/20 17:14 10/15/20 17:14 Lab Results 10/15/20 10/15/20 Range/Units 17:14 17:14 WBC 3.4 L (3.8-10.6) k/uL RBC 4.62 (4.30-5.90) m/uL Hgb 13.5 (13.0-17.5) gm/dL Hct 41.8 (39.0-53.0) % MCV 90.5 (80.0-100.0) fL MCH 29.3 (25.0-35.0) pg MCHC 32.4 (31.0-37.0) g/dL RDW 14.0 (11.5-15.5) % Plt Count 209 (150-450) k/uL MPV 7.2 Neutrophils % 55 % Lymphocytes % 32 % Monocytes % 6 % Eosinophils % 5 % Basophils % 1 % Neutrophils # 1.9 (1.3-7.7) k/uL Lymphocytes # 1.1 (1.0-4.8) k/uL Monocytes # 0.2 (0-1.0) k/uL Eosinophils # 0.2 (0-0.7) k/uL Basophils # 0.1 (0-0.2) k/uL Sodium 139 (137-145) mmol/L Potassium 4.9 (3.5-5.1) mmol/L Chloride 108 H (98-107) mmol/L Carbon Dioxide 30 (22-30) mmol/L Anion Gap 1 mmol/L BUN 14 (9-20) mg/dL Creatinine 0.76 (0.66-1.25) mg/dL Est GFR (CKD-EPI)AfAm >90 (>60 ml/min/1.73 sqM) Est GFR (CKD-EPI)NonAf >90 (>60 ml/min/1.73 sqM) Glucose 92 (74-99) mg/dL Calcium 9.1 (8.4-10.2) mg/dL Magnesium 1.7 (1.6-2.3) mg/dL Total Bilirubin 0.4 (0.2-1.3) mg/dL AST 22 (17-59) U/L ALT 11 (4-49) U/L Alkaline Phosphatase 38 (38-126) U/L Total Protein 6.2 L (6.3-8.2) g/dL Albumin 4.1 (3.5-5.0) g/dL Disposition Clinical Impression: Breakthrough seizure Disposition: HOME SELF-CARE Condition: Stable Instructions (If sedation given, give patient instructions): Recurrent Seizures in Adults (ED) Prescriptions: lamoTRIgine [LaMICtal] 100 mg PO DAILY #30 tab Is patient prescribed a controlled substance at d/c from ED?: No Referrals: Horacio Oliva MD [Primary Care Provider] - 1-2 days
[2020-10-15 17:27] LABS: Basophils # (A) 0.1 k/uL (0-0.2); Basophils % (A) 1 %; Eosinophils # (A) 0.2 k/uL (0-0.7); Eosinophils % (A) 5 %; HCT 41.8 % (39.0-53.0); HGB 13.5 gm/dL (13.0-17.5); Lymphocytes # (A) 1.1 k/uL (1.0-4.8); Lymphocytes % (A) 32 %; MCH 29.3 pg (25.0-35.0); MCHC 32.4 g/dL (31.0-37.0); MCV 90.5 fL (80.0-100.0); Mean Platelet Volume 7.2; Monocytes # (A) 0.2 k/uL (0-1.0); Monocytes % (A) 6 %; Neutrophils # (A) 1.9 k/uL (1.3-7.7); Neutrophils % (A) 55 %; Platelet Count 209 k/uL (150-450); RBC 4.62 m/uL (4.30-5.90); WBC 3.4 k/uL (3.8-10.6)
[2020-10-15 17:50] LABS: ALT 11 U/L (4-49); AST 22 U/L (17-59); African American GFR (CKD) >90 (>60 ml/min/1.73 sqM); Albumin 4.1 g/dL (3.5-5.0); Alkaline Phosphatase 38 U/L (38-126); Anion Gap 1 mmol/L; Blood Urea Nitrogen 14 mg/dL (9-20); Calcium 9.1 mg/dL (8.4-10.2); Carbon Dioxide 30 mmol/L (22-30); Chloride 108 mmol/L (98-107); Glucose 92 mg/dL (74-99); Magnesium 1.7 mg/dL (1.6-2.3); Non-African American GFR(CKD) >90 (>60 ml/min/1.73 sqM); Potassium 4.9 mmol/L (3.5-5.1); Sodium 139 mmol/L (137-145); Total Bilirubin 0.4 mg/dL (0.2-1.3); Total Protein 6.2 g/dL (6.3-8.2)
--- NOTE | 2020-10-15 18:07 | CT ---
EXAMINATION TYPE: CT brain kailey wo con DATE OF EXAM: 10/15/2020 COMPARISON: 09/26/2016 HISTORY: headache following seizure, fell hitting head CT DLP: 1311.5 mGycm Automated exposure control for dose reduction was used. Ventricles and sulci appear normal. There is no mass effect nor midline shift. There is no sign of in tracranial hemorrhage. The calvarium is intact. There is no evidence of cerebral edema. Cervical vertebra have normal spacing and alignment. Posterior elements are intact. Facet joints appe ar normal. There is normal aeration of the mastoid sinuses. Prevertebral soft tissues appear normal. IMPRESSION: Normal CT scan of the brain. Normal CT scan cervical spine. No change.
[2020-10-15] MEDS ORDERED: HYDROcodone/APAP 10-325MG 1 EACH TAB PO ONE (18:21)
[2020-10-15] MEDS ORDERED: lamoTRIgine 100 MG TAB PO STA (18:22)
--- NOTE | 2020-10-15 18:24 | XR ---
EXAMINATION TYPE: XR chest 1V portable DATE OF EXAM: 10/15/2020 COMPARISON: 04/28/2016 HISTORY: Cough TECHNIQUE: FINDINGS: Heart and mediastinum are normal. Lungs are clear. Diaphragm is normal. Bony thorax appears normal. IMPRESSION: Normal chest. No change.
[2020-10-15 19:07] VITALS: BP 121/78; PULSE 78; TEMP 97.9
== END 2020-10-15 19:06 | disposition home or self-care (01) ==
LOC: EC 16:55
DX: G40.919 Epilepsy, unspecified, intractable, without status epilepticus (principal); I25.2 Old myocardial infarction; F41.9 Anxiety disorder, unspecified; F31.9 Bipolar disorder, unspecified; F17.200 Nicotine dependence, unspecified, uncomplicated; Z20.828 Contact with and (suspected) exposure to other viral communicable diseases; Z79.899 Other long term (current) drug therapy; Z88.0 Allergy status to penicillin; Z88.5 Allergy status to narcotic agent; Z88.6 Allergy status to analgesic agent
CPT/HCPCS: 36415; 93005; 80053; 83735; 85025; 71045; 72125; 70450; 99285; U0003

== ENCOUNTER 2021-01-27 13:22 | Emergency (ER) | payer OTHER ==
[2021-01-27 13:37] VITALS: TEMP 98.9
[2021-01-27] MEDS ORDERED: SODIUM CHLORIDE 0.9% 1,000 ML IV STA (14:11)
[2021-01-27] MEDS ORDERED: MORPHINE SULFATE 4 MG/ML SYRINGE IV STA (14:11)
[2021-01-27 14:31] LABS: Appearance,Urine Clear (Clear); Bilirubin,Urine Negative (Negative); Blood,Urine Negative (Negative); Color,Urine Yellow; Glucose,Urine (UA) Negative (Negative); Ketones,Urine 1+ (Negative); Leukocyte Esterase,Urine Negative (Negative); Nitrite,Urine Negative (Negative); Protein,Urine Trace (Negative); Specific Gravity,Urine 1.019 (1.001-1.035); Urobilinogen,Urine <2.0 mg/dL (<2.0)
--- NOTE | 2021-01-27 14:35 | ED ---
Abdominal Pain HPI - General Chief Complaint: Abdominal Pain Stated Complaint: abd pain Time Seen by Provider: 01/27/21 13:38 Source: patient, EMS Mode of arrival: EMS Limitations: no limitations - History of Present Illness Initial Comments: Patient is a 30-year-old male presenting to the emergency Department via EMS, with complaints of abdominal pain is increasing over past 3 days. He denies any fevers but has been having night sweats and chills. He states the pain is on his right upper quadrant, no radiation, it is very sharp in nature. He does admit to nausea, no vomiting or diarrhea. He does admit to history of hiatal hernia, appendectomy. Patient denies any chest pain or shortness of breath. He did arrive via EMS, he was given Zofran and Toradol and the EMS prior to arrival. He continues to have pain rated 7/10. - Related Data Home Medications Medication Instructions Recorded Confirmed DULoxetine HCL [Cymbalta] 60 mg PO DAILY 11/11/17 08/08/20 diazePAM [Valium] 5 mg PO TID 01/11/20 08/08/20 DULoxetine HCL [Cymbalta] 30 mg PO DAILY 02/19/20 08/08/20 Mirtazapine 30 mg PO HS PRN 02/19/20 08/08/20 Cholecalciferol [Vitamin D3 (25 3,000 unit PO DAILY 08/08/20 08/08/20 Mcg = 1000 Iu)] HYDROcodone/APAP 7.5-325MG [[place] 1 tab PO TID 08/08/20 08/08/20 7.5-325] Previous Rx's Medication Instructions Recorded lamoTRIgine [LaMICtal] 100 mg PO DAILY #30 tab 10/15/20 Allergies Allergy/AdvReac Type Severity Reaction Status Date / Time Penicillins Allergy Severe Anaphylaxis Verified 01/27/21 13:38 ketorolac [From Toradol] Allergy Unknown Verified 01/27/21 13:38 tramadol Allergy Unknown Verified 01/27/21 13:38 Review of Systems ROS Statement: Those systems with pertinent positive or pertinent negative responses have been documented in the HPI. ROS Other: All systems not noted in ROS Statement are negative. Past Medical History Past Medical History: GERD/Reflux, Myocardial Infarction ([place]), Seizure Disorder Additional Past Medical History / Comment(s): migraines, hypoglycemia, hiatal hernia, degenerative disk disease, torn miniscus left knee, muscle condition l eft eye. . Last Myocardial Infarction Date:: 2009 History of Any Multi-Drug Resistant Organisms: None Reported Past Surgical History: Appendectomy, Tonsillectomy Additional Past Surgical History / Comment(s): Jae Fundoplication, small intestional repair during appendectomy Past Anesthesia/Blood Transfusion Reactions: Family History of Problems w/ Anesthesia, Motion Sickness Additional Past Anesthesia/Blood Transfusion Reaction / Comment(s): MO [id number] waking up Past Psychological History: Anxiety, Bipolar, Depression Smoking Status: Current every day smoker Past Alcohol Use History: None Reported Past Drug Use History: Marijuana - Past Family History Brother(s) Additional Family Medical History / Comment(s): She has one brother and he has no contact with him. Patient does not have any sisters. Patient does not have any children. Father Family Medical History: Coronary Artery Disease (CAD), Myocardial Infarction ([place]) Additional Family Medical History / Comment(s): Others 52 years of age and he has had no contact with him for the past 3 years. He states he does not know his medical history. Mother Family Medical History: No Reported History Additional Family Medical History / Comment(s): Mother is alive at age 51 has back and neck pain from work injury and is on disability.. General Exam - General Exam Comments Initial Comments: GENERAL: Patient is well-developed and well-nourished. Patient is nontoxic and in mild distress. HEAD: Atraumatic, normocephalic. EYES: Pupils equal round and reactive to light, extraocular movements intact, sclera anicteric, conjunctiva are normal. Eyelids were unremarkable. ENT: TMs normal, nares patent, oropharynx clear without exudates. Moist mucous membranes. NECK: Normal range of motion, supple without lymphadenopathy or JVD. LUNGS: Unlabored respirations. Breath sounds clear to auscultation bilaterally and equal. No wheezes rales or rhonchi. HEART: Regular rate and rhythm without murmurs, rubs or gallops. ABDOMEN: Soft, tender to palpation in the right upper quadrant, positive guarding and positive Aren's sign normoactive bowel sounds. No masses appreciated. : Deferred MUSCULOSKELETAL: Normal extremities with adequate strength and normal range of motion, no pitting or edema. No clubbing or cyanosis. NEUROLOGICAL: Patient is alert and oriented x 3. Motor and sensory are also intact. Cranial nerves II through XII grossly intact. Symmetrical smile. Normal speech, normal gait. PSYCH: Normal mood, normal affect. SKIN: Warm, Dry, normal turgor, no rashes or lesions noted. Limitations: no limitations Course Vital Signs 01/27/21 13:32 Temperature 98.9 F Pulse Rate 87 Respiratory 16 Rate Blood Pressure 125/72 O2 Sat by Pulse 100 Oximetry Medical Decision Making - Medical Decision Making Patient is a 30-year-old male here for right upper quadrant pain for the last 3 days. No fevers, positive nausea but no vomiting or diarrhea. He does have history of appendectomy and hernia repair. Vital signs are stable. Did receive a Zofran and Toradol in the EMS prior to arrival. Labs are unremarkable, normal white count, normal lactic acid, urine is normal. Did do an ultrasound of the gallbladder which reveals no acute findings. Patient was given fluids and morphine. He does report improvement of symptoms. Patient did mention is that his PCP had cut off his chronic pain medications a couple months ago. I discussed with patient that he can follow up with his PCP regarding his pain control. In regards to his abdominal pain, this is most likely viral in nature or gas pains. I recommended increasing his fluid intake. Patient is stable for discharge. Patient is in agreement with this plan of care. Return parameters were discussed with the patient and they verbalized understanding. Case discussed with Dr. Elliott. - Lab Data Result diagrams: 01/27/21 14:17 01/27/21 14:17 Lab Results 01/27/21 01/27/21 01/27/21 Range/Units 14:17 14:17 14:17 WBC 7.6 (3.8-10.6) k/uL RBC 4.60 (4.30-5.90) m/uL Hgb 13.8 (13.0-17.5) gm/dL Hct 40.0 (39.0-53.0) % MCV 87.0 (80.0-100.0) fL MCH 29.9 (25.0-35.0) pg MCHC 34.4 (31.0-37.0) g/dL RDW 13.7 (11.5-15.5) % Plt Count 306 (150-450) k/uL MPV 6.8 Neutrophils % 74 % Lymphocytes % 17 % Monocytes % 6 % Eosinophils % 1 % Basophils % 1 % Neutrophils # 5.6 (1.3-7.7) k/uL Lymphocytes # 1.3 (1.0-4.8) k/uL Monocytes # 0.5 (0-1.0) k/uL Eosinophils # 0.1 (0-0.7) k/uL Basophils # 0.0 (0-0.2) k/uL PT (9.0-12.0) sec INR (<1.2) APTT (22.0-30.0) sec Sodium 140 (137-145) mmol/L Potassium 4.0 (3.5-5.1) mmol/L Chloride 107 (98-107) mmol/L Carbon Dioxide 23 (22-30) mmol/L Anion Gap 10 mmol/L BUN 12 (9-20) mg/dL Creatinine 0.76 (0.66-1.25) mg/dL Est GFR (CKD-EPI)AfAm >90 (>60 ml/min/1.73 sqM) Est GFR (CKD-EPI)NonAf >90 (>60 ml/min/1.73 sqM) Glucose 106 H (74-99) mg/dL Plasma Lactic Acid [place] (0.7-2.0) mmol/L Calcium 9.5 (8.4-10.2) mg/dL Total Bilirubin 0.6 (0.2-1.3) mg/dL AST 27 (17-59) U/L ALT 10 (4-49) U/L Alkaline Phosphatase 41 (38-126) U/L Total Protein 7.1 (6.3-8.2) g/dL Albumin 4.7 (3.5-5.0) g/dL Lipase 73 (23-300) U/L Urine Color Yellow Urine Appearance Clear (Clear) Urine pH 6.0 (5.0-8.0) Ur Specific [place] 1.019 (1.001-1.035) Urine Protein Trace H (Negative) Urine Glucose (UA) Negative (Negative) Urine Ketones 1+ H (Negative) Urine Blood Negative (Negative) Urine Nitrite Negative (Negative) Urine Bilirubin Negative (Negative) Urine Urobilinogen <2.0 (<2.0) mg/dL Ur Leukocyte Esterase Negative (Negative) 01/27/21 01/27/21 Range/Units 14:17 14:17 WBC (3.8-10.6) k/uL RBC (4.30-5.90) m/uL Hgb (13.0-17.5) gm/dL Hct (39.0-53.0) % MCV (80.0-100.0) fL MCH (25.0-35.0) pg MCHC (31.0-37.0) g/dL RDW (11.5-15.5) % Plt Count (150-450) k/uL MPV Neutrophils % % Lymphocytes % % Monocytes % % Eosinophils % % Basophils % % Neutrophils # (1.3-7.7) k/uL Lymphocytes # (1.0-4.8) k/uL Monocytes # (0-1.0) k/uL Eosinophils # (0-0.7) k/uL Basophils # (0-0.2) k/uL PT 11.0 (9.0-12.0) sec INR 1.0 (<1.2) APTT 24.3 (22.0-30.0) sec Sodium (137-145) mmol/L Potassium (3.5-5.1) mmol/L Chloride (98-107) mmol/L Carbon Dioxide (22-30) mmol/L Anion Gap mmol/L BUN (9-20) mg/dL Creatinine (0.66-1.25) mg/dL Est GFR (CKD-EPI)AfAm (>60 ml/min/1.73 sqM) Est GFR (CKD-EPI)NonAf (>60 ml/min/1.73 sqM) Glucose (74-99) mg/dL Plasma Lactic Acid [place] 1.1 (0.7-2.0) mmol/L Calcium (8.4-10.2) mg/dL Total Bilirubin (0.2-1.3) mg/dL AST (17-59) U/L ALT (4-49) U/L Alkaline Phosphatase (38-126) U/L Total Protein (6.3-8.2) g/dL Albumin (3.5-5.0) g/dL Lipase (23-300) U/L Urine Color Urine Appearance (Clear) Urine pH (5.0-8.0) Ur Specific [place] (1.001-1.035) Urine Protein (Negative) Urine Glucose (UA) (Negative) Urine Ketones (Negative) Urine Blood (Negative) Urine Nitrite (Negative) Urine Bilirubin (Negative) Urine Urobilinogen (<2.0) mg/dL Ur Leukocyte Esterase (Negative) Disposition Clinical Impression: Abdominal pain Disposition: HOME SELF-CARE Condition: Stable Instructions (If sedation given, give patient instructions): Abdominal Pain (ED) Additional Instructions: Please return to the Emergency Department if symptoms worsen or any other concerns. Recommend Tylenol for any discomfort. Increase water intake. Follow up with your GI doctor as discussed as symptoms persist. Also follow up with your regular physician. Is patient prescribed a controlled substance at d/c from ED?: No Referrals: Horacio Oliva MD [Primary Care Provider] - 1-2 days
[2021-01-27 14:38] LABS: Basophils % (A) 1 %; Eosinophils # (A) 0.1 k/uL (0-0.7); Eosinophils % (A) 1 %; HGB 13.8 gm/dL (13.0-17.5); Lymphocytes # (A) 1.3 k/uL (1.0-4.8); Lymphocytes % (A) 17 %; MCH 29.9 pg (25.0-35.0); MCHC 34.4 g/dL (31.0-37.0); Mean Platelet Volume 6.8; Monocytes # (A) 0.5 k/uL (0-1.0); Monocytes % (A) 6 %; Neutrophils # (A) 5.6 k/uL (1.3-7.7); Neutrophils % (A) 74 %; Platelet Count 306 k/uL (150-450); RDW 13.7 % (11.5-15.5); WBC 7.6 k/uL (3.8-10.6)
[2021-01-27 14:49] LABS: ALT 10 U/L (4-49); AST 27 U/L (17-59); African American GFR (CKD) >90 (>60 ml/min/1.73 sqM); Albumin 4.7 g/dL (3.5-5.0); Alkaline Phosphatase 41 U/L (38-126); Anion Gap 10 mmol/L; Blood Urea Nitrogen 12 mg/dL (9-20); Calcium 9.5 mg/dL (8.4-10.2); Carbon Dioxide 23 mmol/L (22-30); Chloride 107 mmol/L (98-107); Glucose 106 mg/dL (74-99); Lipase 73 U/L (23-300); Non-African American GFR(CKD) >90 (>60 ml/min/1.73 sqM); Sodium 140 mmol/L (137-145); Total Bilirubin 0.6 mg/dL (0.2-1.3); Total Protein 7.1 g/dL (6.3-8.2)
--- NOTE | 2021-01-27 14:50 | US ---
EXAMINATION TYPE: US gallbladder DATE OF EXAM: 01/27/2021 COMPARISON: US 2019 CLINICAL HISTORY: RUQ pain. RUQ pain and nausea x 3 days EXAM MEASUREMENTS: Liver Length: 13.4 cm Gallbladder Wall: 0.2 cm CBD: 0.3 cm Right Kidney: 9.9 x 4.7 x 5.2 cm Pancreas: obscured by overlying midline bowel gas Liver: wnl Gallbladder: wnl Evidence for sonographic Villafana's sign: no CBD: wnl Right Kidney: wnl IMPRESSION: 1. No acute process.
[2021-01-27 15:13] LABS: Partial Thromboplastin Time 24.3 sec (22.0-30.0)
[2021-01-27] MEDS ORDERED: ACET/COD 300 MG/30 MG STARTER PACK 6 TAB BTL PO STA (16:00)
[2021-01-27 16:11] VITALS: BP 128/71; PULSE 72; RESP 18
== END 2021-01-27 16:11 | disposition home or self-care (01) ==
LOC: EC 13:22
DX: R10.11 Right upper quadrant pain (principal); I25.2 Old myocardial infarction; K21.9 Gastro-esophageal reflux disease without esophagitis; G40.909 Epilepsy, unspecified, not intractable, without status epilepticus; F41.9 Anxiety disorder, unspecified; F32.9 Major depressive disorder, single episode, unspecified; Z90.49 Acquired absence of other specified parts of digestive tract; Z90.09 Acquired absence of other part of head and neck; F17.200 Nicotine dependence, unspecified, uncomplicated; F12.90 Cannabis use, unspecified, uncomplicated
CPT/HCPCS: 36415; 80053; 83605; 83690; 85025; 85610; 85730; 81003; 76705; 99284; 96365; J2270

== ENCOUNTER 2021-05-24 01:04 | Inpatient (IN) | payer MEDICAID, OTHER ==
[2021-05-24] MEDS ORDERED: LIDOCAINE 1%-EPI 1:100,000 20 ML VIAL SQ STA (01:33)
[2021-05-24] MEDS ORDERED: BACITRACIN OINT 1 EACH PACKET TOPICAL ONE (01:33)
[2021-05-24] MEDS ORDERED: DIPH,PERTUS(ACELL)TETVAC-LF 0.5 ML VIAL IM ONE (01:33)
[2021-05-24 02:16] LABS: Appearance,Urine Clear (Clear); Bilirubin,Urine Negative (Negative); Blood,Urine Negative (Negative); Color,Urine Colorless; Glucose,Urine (UA) Negative (Negative); Ketones,Urine Negative (Negative); Leukocyte Esterase,Urine Negative (Negative); Nitrite,Urine Negative (Negative); Protein,Urine Negative (Negative); Specific Gravity,Urine 1.001 (1.001-1.035); Urobilinogen,Urine <2.0 mg/dL (<2.0)
--- NOTE | 2021-05-24 02:32 | ED ---
Psych HPI <Bhargav Cantor - Last Filed: 05/24/21 04:36> - General Source: patient Mode of arrival: ambulatory <Jennifer Muñoz - Last Filed: 05/24/21 19:05> - General Chief Complaint: Psychiatric Symptoms Stated Complaint: Arm Laceration Time Seen by Provider: 05/24/21 01:17 - History of Present Illness Initial Comments: 30 year-old male patient presents for psychiatric evaluation. Patient states his mother brought him because she thinks he cut himself on purpose for attention. He states he was cleaning his room and he cut the top of his arm on a knife that hangs under his bed. Denies any numbness or tingling to the arm. Denies difficulty with range of motion to the wrist or elbow. States that he does have "severe depression" does not currently take any medications. States he has history of suicide attempt in 2018 but nothing since. Denies any suicidal thoughts or plans. Denies any homicidal thoughts. States he did smoke marijuana earlier in the day. Denies any alcohol use. Denies any other injuries. Tetanus is up to date in the last five years. (Jennifer Muñoz) - Related Data Home Medications Medication Instructions Recorded Confirmed DULoxetine HCL [Cymbalta] 60 mg PO DAILY 11/11/17 05/24/21 DULoxetine HCL [Cymbalta] 30 mg PO DAILY 02/19/20 05/24/21 Ergocalciferol [Vitamin D2 (1250 1,250 mcg PO Q7D 01/27/21 05/24/21 Mcg = 76234 Iu)] Ibuprofen [Motrin] 800 mg PO QID PRN 01/27/21 05/24/21 Mirtazapine [Remeron] 45 mg PO HS PRN 01/27/21 05/24/21 levETIRAcetam [Keppra] 1,000 mg PO BID 01/27/21 05/24/21 Allergies Allergy/AdvReac Type Severity Reaction Status Date / Time Penicillins Allergy Severe Anaphylaxis Verified 05/24/21 04:16 ketorolac [From Toradol] Allergy Unknown Verified 05/24/21 04:16 tramadol Allergy Unknown Verified 05/24/21 04:16 Review of Systems ROS Other: All systems not noted in ROS Statement are negative. <Bhargav Cantor - Last Filed: 05/24/21 04:36> ROS Other: All systems not noted in ROS Statement are negative. <Jennifer Muñoz Maite - Last Filed: 05/24/21 19:05> ROS Statement: Those systems with pertinent positive or pertinent negative responses have been documented in the HPI. Past Medical History Past Medical History: GERD/Reflux, Myocardial Infarction ([place]), Seizure Disorder Additional Past Medical History / Comment(s): migraines, hypoglycemia, hiatal hernia, degenerative disk disease, torn miniscus left knee, muscle condition left eye. . Last Myocardial Infarction Date:: 2009 History of Any Multi-Drug Resistant Organisms: None Reported Past Surgical History: Appendectomy, Tonsillectomy Additional Past Surgical History / Comment(s): Jae Fundoplication, small intestional repair during appendectomy Past Anesthesia/Blood Transfusion Reactions: Family History of Problems w/ Anesthesia, Motion Sickness Additional Past Anesthesia/Blood Transfusion Reaction / Comment(s): [id number] waking up Past Psychological History: Anxiety, Bipolar, Depression Smoking Status: Current every day smoker Past Alcohol Use History: None Reported Past Drug Use History: Marijuana - Past Family History Brother(s) Additional Family Medical History / Comment(s): She has one brother and he has no contact with him. Patient does not have any sisters. Patient does not have any children. Father Family Medical History: Coronary Artery Disease (CAD), Myocardial Infarction ([place]) Additional Family Medical History / Comment(s): Others 52 years of age and he has had no contact with him for the past 3 years. He states he does not know his medical history. Mother Family Medical History: No Reported History Additional Family Medical History / Comment(s): Mother is alive at age 51 has back and neck pain from work injury and is on disability.. <Jennifer Muñoz - Last Filed: 05/24/21 19:05> General Exam Limitations: no limitations General appearance: alert, in no apparent distress, other (This is a well- developed, well-nourished adult male patient in no acute distress. Vital signs upon presentation temperature 97.3F, pulse 111, respirations 20, blood pressure 118/70, pulse ox 99% on room air.) Eye exam: Present: normal appearance, PERRL, EOMI. Absent: scleral icterus, conjunctival injection, nystagmus, periorbital swelling ENT exam: Present: normal exam, normal oropharynx, mucous membranes moist Respiratory exam: Present: normal lung sounds bilaterally. Absent: respiratory distress, wheezes, rales, rhonchi, stridor Cardiovascular Exam: Present: regular rate, normal rhythm, normal heart sounds. Absent: systolic murmur, diastolic murmur, rubs, gallop, clicks GI/Abdominal exam: Present: soft, normal bowel sounds. Absent: distended, tenderness, guarding, rebound, rigid Extremities exam: Present: full ROM, normal capillary refill, other (There is a 7 cm laceration noted to the dorsal aspect of the left forearm. Initially there is active bleeding noted which was easily controlled. Skin is pink, warm, dry. Cap refill less than 3 seconds. Radial pulses 2+.). Absent: normal inspection, tenderness, pedal edema, joint swelling, calf tenderness Neurological exam: Present: alert, oriented X3, CN II-XII intact Psychiatric exam: Present: normal affect, normal mood. Absent: homicidal ideation, suicidal ideation Skin exam: Present: warm, dry, intact, normal color. Absent: rash <Jennifer Muñoz - Last Filed: 05/24/21 19:05> Course Vital Signs 05/24/21 01:05 Temperature 97.3 F L Pulse Rate 111 H Respiratory 20 Rate Blood Pressure 118/74 O2 Sat by Pulse 99 Oximetry Procedures - Laceration Laceration #1 Consent Obtained: verbal consent Indication: laceration Site: upper extremity (Left forearm) Size (cm): 7 Description: linear Depth: simple, single layer Anesthetic Used: lidocaine 1%, with epi Anesthesia Technique: local infiltration Amount (mls): 5 Pre-repair: irrigated extensively Type of Sutures: nylon Size of Sutures: 5-0 Number of Sutures: 7 Technique: simple, interrupted Patient Tolerated Procedure: well, no complications <Jennifer Muñoz - Last Filed: 05/24/21 19:05> Medical Decision Making <Bhargav Cantor - Last Filed: 05/24/21 04:36> - Medical Decision Making I saw this patient in conjunction with the nurse practitioner. I performed independent history and physical exam. Agree with case management.. I believe the clinical certification (Bhargav Cantor) - Lab Data Lab Results 05/24/21 Range/Units 02:10 Urine Color Colorless Urine Appearance Clear (Clear) Urine pH 6.0 (5.0-8.0) Ur Specific [place] 1.001 (1.001-1.035) Urine Protein Negative (Negative) Urine Glucose (UA) Negative (Negative) Urine Ketones Negative (Negative) Urine Blood Negative (Negative) Urine Nitrite Negative (Negative) Urine Bilirubin Negative (Negative) Urine Urobilinogen <2.0 (<2.0) mg/dL Ur Leukocyte Esterase Negative (Negative) Urine Opiates Screen Not Detected (NotDetected) Ur Oxycodone Screen Not Detected (NotDetected) Urine Methadone Screen Not Detected (NotDetected) Ur Propoxyphene Screen Not Detected (NotDetected) Ur Barbiturates Screen Not Detected (NotDetected) U Tricyclic Antidepress Not Detected (NotDetected) Ur Phencyclidine Scrn Not Detected (NotDetected) Ur Amphetamines Screen Not Detected (NotDetected) U Methamphetamines Scrn Detected H (NotDetected) U Benzodiazepines Scrn Detected H (NotDetected) Urine Cocaine Screen Not Detected (NotDetected) U Marijuana (THC) Screen Not Detected (NotDetected) Disposition <Bhargav Cantor - Last Filed: 05/24/21 04:36> - Out of Hospital Transfer - Req. Specs Out of Hospital Transfer - [facility] <Jennifer Muñoz - Last Filed: 05/24/21 19:05> Clinical Impression: Laceration of left forearm, Depression Disposition: TRANSFER TO PSYCH HOSP/UNIT Condition: Serious
[2021-05-24 02:34] LABS: Amphetamine Screen,Urine Not Detected (NotDetected); Barbiturate Screen,Urine Not Detected (NotDetected); Benzodiazepines Screen,Urine Detected (NotDetected); Cocaine Screen,Urine Not Detected (NotDetected); Methadone Screen, Urine Not Detected (NotDetected); Opiate Screen,Urine Not Detected (NotDetected); Oxycodone Screen, Urine Not Detected (NotDetected); Phencyclidine Screen,Urine Not Detected (NotDetected); Tricyclic Antidepressant,Urine Not Detected (NotDetected); Urn Cannabinoid Scrn Not Detected (NotDetected)
[2021-05-24] MEDS ORDERED: ACETAMINOPHEN TAB 325 MG TAB PO PRN (04:09)
[2021-05-24] MEDS ORDERED: MAG HYDROX/AL HYDROX/SIMETH 30 ML CUP PO PRN (04:09)
[2021-05-24] MEDS ORDERED: LORazepam 1 MG TAB PO PRN (04:09)
[2021-05-24] MEDS ORDERED: MAGNESIUM HYDROXIDE 2,400 MG/10 ML CUP PO PRN (04:09)
[2021-05-24] MEDS ORDERED: LORazepam 2 MG/ML INJ IM PRN (04:12)
[2021-05-24] MEDS ORDERED: HALOPERIDOL LACTATE 5 MG/ML 1 ML VIAL IM PRN (04:13)
[2021-05-24] MEDS ORDERED: haloperidoL 5 MG TAB PO PRN (04:13)
[2021-05-24] MEDS: levETIRAcetam 500 MG TAB PO SCH ×2 (08:36→21:14)
[2021-05-24] MEDS: NICOTINE 14MG/24HR PATCH TRANSDERM SCH (08:36)
[2021-05-24] MEDS ORDERED: ARIPiprazole 5 MG TAB PO STA (10:47)
[2021-05-24] MEDS ORDERED: DULoxetine HCL 30 MG CAPSULE.DR PO STA (10:48)
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
[2021-05-24] MEDS: DULoxetine HCL 60 MG CAPSULE.DR PO SCH (21:14)
--- NOTE | 2021-05-24 22:41 | CONS ---
CONSULTATION CHIEF COMPLAINT: Major depression, acute psychosis, lacerations of left wrist. HISTORY OF PRESENT ILLNESS: This is another admission for this 30-year-old white male. He became apparently very agitated and started cutting his left wrist and was brought to the emergency room and admitted. REVIEW OF SYSTEMS: He denies any headaches, change in vision or hearing, chest pain, cough, hemoptysis, shortness of breath, heart disease, hypertension, murmurs, rheumatic fever, abdominal pain, nausea, vomiting, hematemesis, melena, hematochezia, jaundice, hepatitis, cirrhosis, hematuria, frequency, urgency, renal failure, incontinence, diabetes, etc. Past medical history, family history and personal and social histories reveal that he has had a history of psychiatric difficulties. When he was last seen in my office, he was on fluoxetine, ibuprofen, mirtazapine, and vitamin D. He is ALLERGIC to PENICILLIN. He does smoke, but does not drink. PHYSICAL EXAMINATION: Blood pressure 116/70 with a pulse of 64, respirations of 10 and he is afebrile. In GENERAL appeared to be slender and has some slightly lethargic. HEENT: Head, ears, eyes, nose, mouth and throat were normal. NECK veins are not distended. Thyroid is not enlarged. CHEST is clear. CARDIAC exam is normal. ABDOMEN is flat, soft and nontender without any masses or visceromegaly. EXTREMITIES: Normal. NEUROLOGICALLY he is intact. IMPRESSION: 1. Major depression. 2. Acute psychosis. 3. Superficial lacerations of the left wrist. RECOMMENDATIONS: None at this time. MMODL / IJN: [id number] /
[2021-05-25] MEDS: NICOTINE 14MG/24HR PATCH TRANSDERM SCH (08:14)
[2021-05-25] MEDS: levETIRAcetam 500 MG TAB PO SCH ×2 (08:14→20:36)
[2021-05-25] MEDS: DULoxetine HCL 30 MG CAPSULE.DR PO SCH (08:15)
[2021-05-25] MEDS ORDERED: ARIPiprazole 5 MG TAB PO SCH (09:00)
--- NOTE | 2021-05-25 11:33 | P.PN ---
Progress Note - Text Progress Note Date: 05/25/21 Interval History: Patient was seen resting in bed and was directable and agreeable to speak with assembly instructions writer in his room. The patient reports that he is feeling better today. He is not endorsing any suicidal or homicidal ideation, intention, and/or plan. He is not reporting any auditory or visual hallucinations. He . At has been adherent with his medications and is not reporting any significant side effects at this time.the patient's mother left a message for the staff stating that she felt like the patient was a danger to himself and towards her. She reported "I don't believe he is telling you guys the same things he is telling me." The patient is agreeable to sign a release of information to allow the staff to speak with her. Her name is Aleida and her phone number is [phone]. When the patient was informed that his mother had concerns, the patient vehemently denies any specific concerns that his mother may have. He does report that he is upset at his mother for getting rid of his dogs but expressly states that he had has not made any threat towards her. Patient does express that substance use which contributed to the reasons for his admission. He does acknowledge and he needs to cut back on his substance use. Mental Status Exam: General Appearance: Patient appears to be stated age is alert, directable, and cooperative. Thin build, has a noticeable laceration on his left posterior forearm that are sutured as well as some superficial scratches. Behavior: Patient is calmly lying in bed without any agitated behavior. Eye contact is appropriate. Psychomotor activity was normal. Speech: Patient's speech is fluent and nonpressured. Mood/Affect: Mood is improving mildly, affect is congruent and constricted. Suicidality/Homicidality: Patient denies having any suicidal or homicidal ideation intent or plan. Perceptions: Patient denies any visual hallucinations and denies any auditory hallucinations Though content/process: There is no evidence of any delusional thought content and thought process is linear and goal-directed. Memory and concentration: AOX3, grossly intact for the purposes of this session Judgment and insight: Improving mildly Vital Signs Temp 98.7 F 05/24/21 04:32 Pulse 88 05/24/21 04:32 Resp 15 05/24/21 04:32 BP 90/56 05/24/21 04:32 Pulse Ox 100 05/24/21 04:32 Assessment Major depressive disorder, recurrent, with anxious features; rule out bipolar 2 disorder Posttraumatic stress disorder Nicotine dependence Cannabis use Cluster B personality traits Plan: -Patient continues to meet criteria for inpatient psychiatric admission for symptom stabilization and safety. Patient has signed adult voluntary form and medication consent and was placed in patient's chart. -Medications: Continue Cymbalta 30 mg by mouth every morning and 60 mg by mouth at bedtime for management of depression Increase Abilify to 10 mg by mouth daily for mood augmentation and stabilization Continue Keppra for seizure disorder -When necessary Ativan and Haldol for agitation/aggression. -NRT - nicotine patch -SW on board for discharge planning. Encouraged the patient to participate in milieu.
[2021-05-25] MEDS: DULoxetine HCL 60 MG CAPSULE.DR PO SCH (20:36)
[2021-05-26 06:46] VITALS: BP 111/60; PULSE 68; RESP 16; TEMP 97.8
[2021-05-26] MEDS: levETIRAcetam 500 MG TAB PO SCH (08:24)
[2021-05-26] MEDS: DULoxetine HCL 30 MG CAPSULE.DR PO SCH (08:25)
[2021-05-26] MEDS ORDERED: ARIPiprazole 10 MG TAB PO SCH (09:00)
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
== END 2021-05-26 12:45 | disposition home or self-care (01) | DRG 885 ==
LOC: EC 01:04 → 3MHU 04:02
PROVIDERS: ADMIT Psychiatry & Neurology Psychiatry; ATTEND Psychiatry & Neurology Psychiatry
DX: F33.2 Major depressive disorder, recurrent severe without psychotic features (principal); F23 Brief psychotic disorder; F19.10 Other psychoactive substance abuse, uncomplicated; F12.20 Cannabis dependence, uncomplicated; F13.10 Sedative, hypnotic or anxiolytic abuse, uncomplicated; F17.210 Nicotine dependence, cigarettes, uncomplicated; F43.10 Post-traumatic stress disorder, unspecified; G40.909 Epilepsy, unspecified, not intractable, without status epilepticus; F60.9 Personality disorder, unspecified; I25.2 Old myocardial infarction; S51.812A Laceration without foreign body of left forearm, initial encounter; S61.512A Laceration without foreign body of left wrist, initial encounter; X78.9XXA Intentional self-harm by unspecified sharp object, initial encounter; Z79.899 Other long term (current) drug therapy; Z82.49 Family history of ischemic heart disease and other diseases of the circulatory system; Z91.5 Personal history of self-harm; Z56.0 Unemployment, unspecified; F41.9 Anxiety disorder, unspecified; Z88.5 Allergy status to narcotic agent; Z88.0 Allergy status to penicillin
CPT/HCPCS: 12002; 80306; 81003; 82075; 99285